=== PATIENT | male | born 1960 | race Caucasian/White ===

== ENCOUNTER 2023-09-28 13:41 | Outpatient (CLI) | payer MEDICARE, SELFPAY | END 2023-09-28 13:42 | disposition home or self-care (01) | PROVIDERS: PCP Family Medicine; Visit Provider Family Medicine | DX: Z13.220 Encounter for screening for lipoid disorders (principal); Z12.5 Encounter for screening for malignant neoplasm of prostate; R53.83 Other fatigue | CPT/HCPCS: 80048; 80061; 84443; G0103 ==

== ENCOUNTER 2024-10-03 10:03 | Outpatient (CLI) | payer MEDICARE, SELFPAY | END 2024-10-03 10:04 | disposition home or self-care (01) | PROVIDERS: PCP Family Medicine; Visit Provider Family Medicine | DX: E53.8 Deficiency of other specified B group vitamins (principal); G58.7 Mononeuritis multiplex | CPT/HCPCS: 80048; 82607; 85025 ==

== ENCOUNTER 2024-10-09 16:44 | Outpatient (CLI) | payer MEDICARE, SELFPAY | END 2024-10-09 16:45 | disposition home or self-care (01) | LOC: AMB 10-10 09:46 | PROVIDERS: PCP Family Medicine; Visit Provider Family Medicine | DX: R10.9 Unspecified abdominal pain (principal); R11.10 Vomiting, unspecified | CPT/HCPCS: A0425; A0427 ==

== ENCOUNTER 2024-10-09 17:33 | Inpatient (IN) | payer MEDICARE, SELFPAY ==
[2024-10-09] VITALS (32 sets, daily range): BP systolic 110–154; BP diastolic 65–112; PULSE 85–128; RESP 5–34; TEMP 36.8; O2SAT 93–98
[2024-10-09 18:10] LABS: Hematocrit 43.5 % (37.0-53.0); Hemoglobin* 15.5 gm/dL (13.5-17.5); Lymphocytes Percent Auto 5.5 % (20-44); Mean Corpuscular HGB Conc 36 gm/dL (32-36); Mean Corpuscular Hemoglobin 31 pg (26-34); Mean Corpuscular Volume 88 fL (80-100); Neutrophils Percent Auto 85.4 % (42.0-72.0); Platelet Count* 239 K/uL (140-440); RDW Coefficient of Variation % 12.7 % (11.5-15.5); Red Blood Count 4.95 m/uL (4.30-5.90); White Blood Count* 23.24 K/uL (4.50-11.00)
[2024-10-09 18:11] LABS: Eosinophils Percent Auto 0.1 % (0.0-7.0); Immature Granulocytes Pct Auto 0.6 %; Lactate* 2.2 mmol/L (0.5-1.9); Monocytes Percent Auto 8.4 % (0.0-11.0)
[2024-10-09 18:15] LABS: Slide Review Reflex No
[2024-10-09] MEDS: ONDANSETRON 2 MG/ML inj 4 MG IVP ×2 (18:24→22:45)
[2024-10-09] MEDS: 0.9 % SODIUM CHLORIDE 1000 ml 1,000 ML IV ×2 (18:24→21:24)
[2024-10-09] MEDS: TRANEXAMIC ACID 100 MG/ML INJ 1000 MG IV (18:24)
[2024-10-09 18:32] LABS: Albumin* 4.3 g/dL (3.3-5.0); Chloride* 97 mmol/L (96-114); Sodium* 135 mmol/L (135-149)
--- NOTE | 2024-10-09 18:34 | ED_ITS ---
HPI - Abdominal Pain General Date Seen: 10/09/24 Chief Complaint: Abdominal Pain Stated Complaint: Vomiting blood Time Seen by Provider: 10/09/24 17:48 Source: patient, family, EMS, RN notes reviewed and old records reviewed Mode of arrival: EMS Limitations: no limitations History of Present Illness HPI narrative: Patient is a very nice 64-year-old gentleman who presents here by EMS for ab dominal pain bloating and vomiting, he is vomiting up but dark coffee-grounds like, he is paraplegic and wheelchair bound, secondary to his mononeuritis. He is here with his caregiver, there is some swelling between the ovaries safe quit drinking or easy still drinking, she reports that there is some beer cans in his garbage, he reports that he has not drank anything in the last year. No history per patient of any varices, although I do see in his chart is a history of pancreatitis which thought to be secondary possibly to alcoholic reasons. He denies taking a blood thinner, or anticoagulants. No history of any fevers chills, he denies any diarrhea, and ex if anything his had no bowel movements. He says he has been sick now for approximately 6 days but worse in the last 24 hours. The amount of times he has vomited he thinks is greater than 10 times. No sumanth blood associated with anything that he is passing by his rectum, or he is vomiting. No previous history of GI bleeds. No history of any radiation of discomfort, no history of previous abdominal operations. Related Data Previous Rx's ?Medication ?Instructions ?Recorded gabapentin 800 mg tablet See Rx Instructions PO .COMP RUSSELL 10/03/24 #600 tabs omeprazole 20 mg capsule,delayed 20 mg PO QDAY #90 cap s 10/03/24 release Allergies Allergy/AdvReac Type Severity Reaction Status Date / Time No Known Allergies Allergy Unknown Unknown Verified 10/03/24 09:26 Review of Systems Status of ROS Reports: 10 or more systems reviewed and unremarkable except as noted in History and below [facility] Medical History Osteoarthritis of right hip ?M16.11 - Unilateral primary osteoarthritis, right hip (ICD-10) B12 deficiency ?E53.8 - Deficiency of other specified B group vitamins (ICD-10) Alcohol abuse ?F10.10 - Alcohol abuse, uncomplicated (ICD-10) Neuropathic pain ?M79.2 - Neuralgia and neuritis, unspecified (ICD-10) 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 - Mononeuritis multiplex (ICD-10) GERD (gastroesophageal reflux disease) ?K21.9 - Gastro-esophageal reflux disease without esophagitis (ICD-10) Surgical History S/P left inguinal hernia repair ?Z98.890 - Other specified postprocedural states (ICD-10) ?Z87.19 - Personal history of other diseases of the digestive system (ICD-10) Social History What is your current living situation?: I presently have a place to live Problems where you live: no known problems and declined to answer In the past 12 months, utilities in danger of being shut off: no In past 12 months, lack of transportation kept you from medical appts, meetings, work, or getting things needed for daily living: no In the past 12 mos, have been you worried that your food would run out before you had money to buy more?: never true In the past 12 mos, the food you bought just didn't last and you didn't have money to buy more?: never true Smoking Status: Never smoker How often does anyone, including family, friends and others, physically hurt you : never How often does anyone, including family, friends and others, insult or talk down to you: never How often does anyone, including family, friends and others, threaten you with harm: never How often does anyone, including family, friends and others, scream or curse at you: never Exam Narrative: Exam Narrative: On examination stable 2 he is in no apparent distress laying on his side, he has tenderness more in the middle part periumbilical his abdomen but he is not peritoneal, bowel sounds are quiet, there is no masses, he is obese, no hernias are noted, normal male genitalia. No darkening or suggestion of caput medusa. I do not detect any obvious ascites. Or shifting dullness. No CVA tenderness or bruising or mottling noted. Heart sounds are normal, chest is good air entry bilaterally mouth is otherwise normal there is no evidence of any change in hydration status his lower extremities appear normal, moved normally. Const: Vital Signs, click to edit/add: Vital Signs - 24 hr 10/09/24 17:48 10/09/24 18:00 10/09/24 18:15 Pulse Rate 123 H 107 H 121 H Respiratory Rate 18 16 16 Blood Pressure Pulse Oximetry 96 95 95 10/09/24 18:30 10/09/24 18:31 10/09/24 18:45 Pulse Rate 128 H 120 H Respiratory Rate 33 H 30 H 34 H Blood Pressure 130/103 H Pulse Oximetry 97 96 10/09/24 18:46 10/09/24 19:00 10/09/24 19:01 Pulse Rate 118 H 108 H 98 Respiratory Rate 20 18 22 Blood Pressure 147/112 H 154/107 H Pulse Oximetry 97 95 94 10/09/24 19:02 10/09/24 19:15 10/09/24 19:16 Pulse Rate 99 112 H 109 H Respiratory Rate 29 H 10 L 17 Blood Pressure 142/89 H Pulse Oximetry 96 95 94 10/09/24 19:30 10/09/24 19:32 10/09/24 20:03 Pulse Rate 109 H 113 H 95 Respiratory Rate 23 24 23 Blood Pressure 151/95 H Pulse Oximetry 95 95 95 10/09/24 20:05 Pulse Rate 103 H Respiratory Rate 20 Blood Pressure 119/69 Pulse Oximetry 97 Documenting provider has reviewed patient's vital signs: yes Course Reevaluation(s) Time of Reevaluation #1: 20:51 Reevaluation #1: Spoke to the patient again apprised him of the problem, he has acute cholecystitis, with an elevated white count. CT confirmatory on this. Likely has a bit of Lilian-Meyer with upper GI bleeds and retching secondary to this. No evidence of varices on CT. Spoke to Dr. Martino, she recommended admission IV antibiotics, pain medications NPO status she will see him in the morning, I then spoke to my hospitalist PA,Deena Michaels graciously accepted the patient, for above status Vital Signs Vital signs: Initial Vital Signs Pulse Rate 123 H 10/09/24 17:48 Respiratory Rate 18 10/09/24 17:48 Pulse Oximetry 96 10/09/24 17:48 Vital Signs Pulse Rate 123 H 10/09/24 17:48 Respiratory Rate 18 10/09/24 17:48 Pulse Oximetry 96 10/09/24 17:48 Pulse Rate 103 H 10/09/24 20:05 Respiratory Rate 20 10/09/24 20:05 Blood Pressure 119/69 10/09/24 20:05 Pulse Oximetry 97 10/09/24 20:05 Medications Administered Medications: Discontinued Medications Generic Name Dose Route Start Last Admin Trade Name Oscar PRN Reason Stop Dose Admin Sodium Chloride 1,000 mls @ 1,000 mls/hr 10/09/24 18:00 10/09/24 19:40 0.9 % Sodium Chloride 1000 Ml IV 10/09/24 18:59 Infused .Q1H BONITA Infusion Ondansetron HCl 4 mg 10/09/24 17:48 10/09/24 18:24 Ondansetron 2 Mg/Ml Inj IVP 10/09/24 17:49 4 mg ONCE ONE Administration Tranexamic Acid 1,000 mg 10/09/24 17:48 10/09/24 18:24 Tranexamic Acid 100 Mg/Ml Inj IV 10/09/24 17:49 1,000 mg ONCE ONE Administration MDM - Abdominal Pain MDM Narrative Medical decision making narrative: During this evaluation of this patient I considered multiple differential diagnosis is which included the life-threatening such as appendicitis, aortic aneurysm, mesenteric ischemia, bowel perforation, volvulus, and bowel obstruction. Other differential diagnosis is include but are not limited to cholecystitis, pancreatitis, hepatitis, gastritis, GERD, diverticulitis, peptic ulcer disease, pyelonephritis/UTI, renal colic/stone, testicular torsion as well as other acute scrotal processes, inflammatory bowel disease, as well as other etiologies I think we have to consider a possible upper GI bleed in this gentleman, given what I am seeing. We will go ahead and start 2 IVs, give him some TXA along with Protonix, IV fluids, and type and screen him. Until we get confirmation I did offer him some pain medications which she declined. Differential Diagnosis Differential diagnosis: Likely abdominal pain, acute appendicitis, calculus of kidney, constipation, diverticulitis, gastroenteritis, pancreatitis and small bowel obstruction Medical Records Attestation: I reviewed the patient's medical records. Lab Data Attestation: I reviewed the patient's lab results. Labs: Lab Results 10/09/24 10/09/24 10/09/24 Range/Units 17:50 18:04 18:30 WBC 23.24 H (4.50-11.00) K/uL RBC 4.95 (4.30-5.90) m/uL Hgb 15.5 (13.5-17.5) gm/dL Hct 43.5 (37.0-53.0) % MCV 88 (80-100) fL MCH 31 (26-34) pg MCHC 36 (32-36) gm/dL RDW Coeff of Sasha 12.7 (11.5-15.5) % Plt Count 239 (140-440) K/uL Neut % (Auto) 85.4 H (42.0-72.0) % Lymph % (Auto) 5.5 L (20-44) % Bell % (Auto) 8.4 (0.0-11.0) % Eos % (Auto) 0.1 (0.0-7.0) % Baso % (Auto) 0.0 (0.0-3.0) % Neut # (Auto) 19.80 H (1.7-7.0) K/uL Lymph # (Auto) 1.30 (0.90-2.90) K/uL Bell # (Auto) 2.00 H (0.00-0.90) K/UL Eos # (Auto) 0.00 (0.00-0.50) K/uL Baso # (Auto) 0.00 (0.00-0.30) K/uL Abs Immat Gran (auto) 0.10 (0.00-0.30) K/uL Imm/Tot Granulo (auto) 0.6 % INR 1.12 H (0.91-1.10) APTT 35 H (23-33) Seconds Sodium 135 (135-149) mmol/L Potassium 3.0 L (3.6-5.1) mmol/L Chloride 97 (96-114) mmol/L Carbon Dioxide 28 (20-32) mmol/L Anion Gap 10 (7-15) mEq/L BUN 29 (7-30) mg/dL Creatinine 1.1 (0.5-1.5) mg/dL Estimated GFR 76 ml/min Glucose 124 H (60-115) mg/dL Lactate 2.2 H (0.5-1.9) mmol/L Calcium 9.7 (8.4-10.6) mg/dL Total Bilirubin 2.2 H (0.1-1.5) mg/dL Direct Bilirubin 0.0 (0.0-0.5) mg/dL AST 33 (12-35) U/L ALT 21 (4-50) U/L Alkaline Phosphatase 83 (40-150) U/L Total Protein 8.0 (6.0-8.3) g/dL Albumin 4.3 (3.3-5.0) g/dL Amylase 47 (18-89) U/L Lipase 20 L (23-300) U/L Urine Color Dark yellow (Yellow) Urine Appearance Clear (Clear) Urine pH 6.0 (5.0-8.5) Ur Specific [place] 1.020 (1.000-1.030) Urine Protein 2+ A (Negative) Urine Glucose (UA) Negative (Negative) Urine Ketones Negative (Negative) Urine Blood Negative (Negative) Urine Nitrite Positive A (Negative) Urine Bilirubin 1+ A (Negative) Urine Urobilinogen 4.0 A (0.2-1.0) Ur Leukocyte Esterase Negative (Negative) Urine RBC 0-2 (0-2) Urine WBC 0-2 (0-5) Ur Squamous Epith Cells None (None-Few) Amorphous Sediment Few A (None) Urine Bacteria None (None) Gastric Occult Blood (Negative) Ethyl Alcohol < 0.01 (0.01-0.03) % POC Troponin I 0.00 L (0.01-0.04) ng/ml Blood Type O Positive Antibody Screen NEGATIVE 10/09/24 Range/Units 19:21 WBC (4.50-11.00) K/uL RBC (4.30-5.90) m/uL Hgb (13.5-17.5) gm/dL Hct (37.0-53.0) % MCV (80-100) fL MCH (26-34) pg MCHC (32-36) gm/dL RDW Coeff of Sasha (11.5-15.5) % Plt Count (140-440) K/uL Neut % (Auto) (42.0-72.0) % Lymph % (Auto) (20-44) % Bell % (Auto) (0.0-11.0) % Eos % (Auto) (0.0-7.0) % Baso % (Auto) (0.0-3.0) % Neut # (Auto) (1.7-7.0) K/uL Lymph # (Auto) (0.90-2.90) K/uL Bell # (Auto) (0.00-0.90) K/UL Eos # (Auto) (0.00-0.50) K/uL Baso # (Auto) (0.00-0.30) K/uL Abs Immat Gran (auto) (0.00-0.30) K/uL Imm/Tot Granulo (auto) % INR (0.91-1.10) APTT (23-33) Seconds Sodium (135-149) mmol/L Potassium (3.6-5.1) mmol/L Chloride (96-114) mmol/L Carbon Dioxide (20-32) mmol/L Anion Gap (7-15) mEq/L BUN (7-30) mg/dL Creatinine (0.5-1.5) mg/dL Estimated GFR ml/min Glucose (60-115) mg/dL Lactate (0.5-1.9) mmol/L Calcium (8.4-10.6) mg/dL Total Bilirubin (0.1-1.5) mg/dL Direct Bilirubin (0.0-0.5) mg/dL AST (12-35) U/L ALT (4-50) U/L Alkaline Phosphatase (40-150) U/L Total Protein (6.0-8.3) g/dL Albumin (3.3-5.0) g/dL Amylase (18-89) U/L Lipase (23-300) U/L Urine Color (Yellow) Urine Appearance (Clear) Urine pH (5.0-8.5) Ur Specific [place] (1.000-1.030) Urine Protein (Negative) Urine Glucose (UA) (Negative) Urine Ketones (Negative) Urine Blood (Negative) Urine Nitrite (Negative) Urine Bilirubin (Negative) Urine Urobilinogen (0.2-1.0) Ur Leukocyte Esterase (Negative) Urine RBC (0-2) Urine WBC (0-5) Ur Squamous Epith Cells (None-Few) Amorphous Sediment (None) Urine Bacteria (None) Gastric Occult Blood POSITIVE A (Negative) Ethyl Alcohol (0.01-0.03) % POC Troponin I (0.01-0.04) ng/ml Blood Type Antibody Screen Imaging Data CT scan - abdomen: Attestation: I have reviewed the pertinent imaging results. My impression: Acute cholecystitis Radiologist's impression: [address] [address] Diagnostic Imaging Report Patient: Steven Montoya MR#: [id number] : 1960 Acct:[id number] Loc: ED Service Date: 10/09/[address]: Ordering Physician: Pool Hubbard M.D. Date of Service: 10/09/24 Procedure(s): CT abdomen pelvis w con Accession Number(s): [id number] cc: Freddy Hightower M.D.; Pool Hubbard M.D.~ For Patients: As a result of the Cures Act, medical imaging exams and procedure reports are released immediately into your electronic medical record. You may view this report before your referring provider. If you have questions, please contact your health care provider. INDICATION: Abdominal pain, history of possible upper GI bleed. TECHNIQUE: CT abdomen and pelvis acquired with 100 cc Isovue 370 IV contrast. COMPARISON: None. FINDINGS: Lower chest: Coronary artery calcifications. Liver: Left hepatic lobe cyst. Unremarkable in size and attenuation. No suspicious masses. Gallbladder and bile ducts: Fluid dilation of the gallbladder with diffusely edematous appearance of the wall and pericholecystic inflammatory changes. No definite cholelithiasis. No biliary dilatation. Pancreas: Unremarkable. No mass or inflammation. Spleen: Splenule. Normal in size. No masses. Adrenal glands: Unremarkable. No nodules. Kidneys: Subcentimeter hypodense lesions too small to characterize, possibly cysts. No suspicious masses, stones, or hydronephrosis. GI tract: Moderate hiatal hernia. Normal in caliber. No sign of mass or inflammation. Normal appendix. Vasculature: Abdominal aorta is normal in caliber. Mesenteric arteries are patent. Lymph nodes: No lymphadenopathy. Peritoneum/Abdominal Wall: Unremarkable. No sign of mass or infiltration. No free air or significant free fluid. Pelvis: Bladder is unremarkable. Prostate is unremarkable. Bones: No acute findings. Severe bilateral hip osteoarthritis. Multilevel spinal degenerative changes. IMPRESSION: 1. Findings consistent with acute cholecystitis. 2. Moderate hiatal hernia. Please note that all CT scans at this facility use dose modulation, iterative reconstruction, and/or weight-based dosing when appropriate to reduce radiation dose to as low as reasonably achievable. Dictated by Freddy Shah MD @ 10/09/2024 8:28:20 PM (Electronically Signed) Discharge Plan Discharge Clinical Impression: Acute cholecystitis, Acute hypokalemia, Acute upper gastrointestinal bleeding, Vomiting, Mononeuritis multiplex Patient Disposition: Admitted As Observation Condition: Guarded Activity Level: Up with assist Discharge Diet: Other Diet Detail: NPO
[2024-10-09 18:35] LABS: Alanine Aminotransferase* 21 U/L (4-50); Alkaline Phosphatase* 83 U/L (40-150); Amylase* 47 U/L (18-89); Anion Gap 10 mEq/L (7-15); Aspartate Amino Transferase* 33 U/L (12-35); Bilirubin Total* 2.2 mg/dL (0.1-1.5); Blood Urea Nitrogen* 29 mg/dL (7-30); Calcium* 9.7 mg/dL (8.4-10.6); Carbon Dioxide* 28 mmol/L (20-32); Creatinine* 1.1 mg/dL (0.5-1.5); Estimated Glomerular Filt Rate 76 ml/min; Glucose* 124 mg/dL (60-115); Lipase* 20 U/L (23-300)
[2024-10-09 18:46] LABS: Appearance Urine Clear (Clear); Bilirubin Urine 1+ (Negative); Blood Urine Negative (Negative); Color Urine Dark yellow (Yellow); Glucose Urine Negative (Negative); Ketones Urine Negative (Negative); Leukocyte Esterase Urine Negative (Negative); Nitrite Urine Positive (Negative); Protein Urine 2+ (Negative)
[2024-10-09 18:47] LABS: Ethanol* < 0.01 % (0.01-0.03)
[2024-10-09 18:50] LABS: INR 1.12 (0.91-1.10); Prothrombin Time 15.3 Seconds
[2024-10-09 18:51] LABS: Partial Thromboplastin Time* 35 Seconds (23-33)
[2024-10-09 18:55] LABS: Amorphous Sediment Urine Few; RBC Urine 0-2 (0-2); WBC Urine 0-2 (0-5)
--- NOTE | 2024-10-09 19:17 | CRLHL7_ITS ---
For Patients: As a result of the Century Cures Act, medical imaging exams and procedure reports are released immediately into your electronic medical record. You may view this report before your referring provider. If you have questions, please contact your health care provider. INDICATION: Abdominal pain, history of possible upper GI bleed. TECHNIQUE: CT abdomen and pelvis acquired with 100 cc Isovue 370 IV contrast. COMPARISON: None. FINDINGS: Lower chest: Coronary artery calcifications. Liver: Left hepatic lobe cyst. Unremarkable in size and attenuation. No suspicious masses. Gallbladder and bile ducts: Fluid dilation of the gallbladder with diffusely edematous appearance of the wall and pericholecystic inflammatory changes. No definite cholelithiasis. No biliary dilatation. Pancreas: Unremarkable. No mass or inflammation. Spleen: Splenule. Normal in size. No masses. Adrenal glands: Unremarkable. No nodules. Kidneys: Subcentimeter hypodense lesions too small to characterize, possibly cysts. No suspicious masses, stones, or hydronephrosis. GI tract: Moderate hiatal hernia. Normal in caliber. No sign of mass or inflammation. Normal appendix. Vasculature: Abdominal aorta is normal in caliber. Mesenteric arteries are patent. Lymph nodes: No lymphadenopathy. Peritoneum/Abdominal Wall: Unremarkable. No sign of mass or infiltration. No free air or significant free fluid. Pelvis: Bladder is unremarkable. Prostate is unremarkable. Bones: No acute findings. Severe bilateral hip osteoarthritis. Multilevel spinal degenerative changes. IMPRESSION: 1. Findings consistent with acute cholecystitis. 2. Moderate hiatal hernia. Please note that all CT scans at this facility use dose modulation, iterative reconstruction, and/or weight-based dosing when appropriate to reduce radiation dose to as low as reasonably achievable. Dictated by Freddy Shah MD @ 10/09/2024 8:28:20 PM (Electronically Signed)
--- NOTE | 2024-10-09 20:58 | P.IMHP_ITS ---
Assessment and Plan Assessment and plan (1) Sepsis: Problem comment: Leukocytosis, WBC 23.24 with left shift 85%, tachycardic, EKG shows sinus tachycardia - repeat EKG in a.m., lactate 2.2 in ED - normalized, 0.9 on recheck Suspected source is acute cholecystitis HR improving following sepsis fluid resuscitation, afebrile, normotensive Continue Zosyn as initiated in ED Continue LR IVF to complete bolus 30 mL/kg followed by maintenance fluids alarm security or surveillance monitor, vitals per sepsis protocol- deescalating as appropriate BC x2 ordered, UC pending Status: Acute (2) Acute cholecystitis: Problem comment: CT shows Fluid dilation of the gallbladder with diffusely edematous appearance of the wall and pericholecystic inflammatory changes. No definite cholelithiasis. No biliary dilatation. C/w acute cholecystitis US ordered for a.m. Total bilirubin 2.2, AST 33, ALT 21, alk-phos 83, lipase 20 ED provider discussed with Dr. Martino, Gen Surg. Plan for consult in am, likely to OR to follow IV zosyn, NPO at midnight, IVF, pain/nausea management No enoxaparin pending surgical intervention, SCDs for VTE PPX (nonambulatory) Status: Acute (3) Acute upper gastrointestinal bleeding: Problem comment: Reports coffee ground emesis Gastric occult blood + Not on an anticoagulant/blood thinner H/o alcohol dependence - reports sober > 1 year. Concern would be for esophageal varicies Monitor, serial hemoglobin IV PPI bid No enoxaparin General Surgery consult. Would likely need to be transferred if persists or w orsens for appropriate intervention Status: Acute (4) Acute hypokalemia: Problem comment: K+ 3.0 Received 10 mEq IV in ED. Will give 3 more bumps Status: Acute (5) GERD (gastroesophageal reflux disease): Problem comment: Hold home omeprazole IV PPI Status: Acute (6) Mononeuritis multiplex: Problem comment: Dx 2012 Managed by PCP Status: Acute (7) Neuropathic pain: Problem comment: R/t mononeuritis Recent B12 285 Wheelchair bound Continue gabapentin 800mg q 6 hours (as reported in annual exam 10/03/24) Managed by PCP, no longer follows with Neurology Status: Chronic Plan General surgery consult in the morning. Ultrasound ordered for the morning. Plan for OR. NPO after midnight. Hold chemical prophylaxis. SCDs for VTE PPX. Lactate normalized, HR improving, patient actually looks quite well currently. Repeat EKG in the morning. Appropriate for planned surgical procedure unless decompensates overnight. Total Time Spent Total Time Spent: Today I spent 90 minutes seeing the patient, reviewing Expanse and EPIC notes/diagnostics, discussing the care plan with our care time that includes social work, PT/OT, pharmacy, RT, [facility]p and documenting my impressions and plan in the medical record. Hospitalist- H&P: HPI History of Present Illness Date Seen: 10/09/24 Chief complaint: Vomiting blood Narrative: Steven Montoya is a 64 year old male past medical history significant for mononeuritis multiplex with neuropathic pain, B12 deficiency, GERD, osteoarthritis, history of alcohol dependence sober > 1 year is admitted to the medical floor from the ED for further management of sepsis in setting of acute cholecystitis. Patient is able to provide history but somewhat vague and not consistent with dates/timing. He reports abdominal pain and bloating for the past 5 days, worsening over the last 24 hours. Describes pain as crampy. Reports dark coffee-ground vomitus the past few days. History of alcohol dependence but denies alcohol use in the last year. No known history of varices. Does have a history of pancreatitis. Does not take any blood thinners/anticoagulant. Denies fevers or chills. Denies headache or dizziness. Denies chest pain or shortness of breath. Last normal bowel movement was maybe 4-5 days ago. Small stools have otherwise been without blood. No change in urination. Adamant that he has not drank any alcohol in the past year. ED report states caregiver has seen beer cans in his trash. He tells me this is because he has visitors who throw their cans in there. Lives alone. Has a caregiver every other week. Independent with ADLs. Nonambulatory. Wheelchair-bound secondary to his mononeuritis. Is able to stand and pivot. Denies history of anesthesia complications, personal/family bleeding disorders. Nonsmoker. History of alcohol dependence. PCP is Dr. Hightower. Review of Systems Narrative: REVIEW OF SYSTEMS: Complete review of systems performed and negative unless otherwise stated in HPI or below. Medical Decision Making Medical Decision Making Has patient completed a Health Care Directive: No PFSH PFSH Medical History (Updated 10/09/24 @ 22:46 by Deena Espinal PA-C) Osteoarthritis of right hip ?M16.11 - Unilateral primary osteoarthritis, right hip (ICD-10) B12 deficiency ?E53.8 - Deficiency of other specified B group vitamins (ICD-10) Alcohol abuse ?F10.10 - Alcohol abuse, uncomplicated (ICD-10) Neuropathic pain ?M79.2 - Neuralgia and neuritis, unspecified (ICD-10) 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 - Mononeuritis multiplex (ICD-10) GERD (gastroesophageal reflux disease) ?K21.9 - Gastro-esophageal reflux disease without esophagitis (ICD-10) Surgical History S/P left inguinal hernia repair ?Z98.890 - Other specified postprocedural states (ICD-10) ?Z87.19 - Personal history of other diseases of the digestive system (ICD-10) Social History What is your current living situation?: I presently have a place to live Problems where you live: no known problems and declined to answer In the past 12 months, utilities in danger of being shut off: no In past 12 months, lack of transportation kept you from medical appts, meetings, work, or getting things needed for daily living: no In the past 12 mos, have been you worried that your food would run out before you had money to buy more?: never true In the past 12 mos, the food you bought just didn't last and you didn't have money to buy more?: never true Smoking Status: Never smoker How often does anyone, including family, friends and others, physically hurt you : never How often does anyone, including family, friends and others, insult or talk down to you: never How often does anyone, including family, friends and others, threaten you with harm: never How often does anyone, including family, friends and others, scream or curse at you: never Meds Home Medications and Allergies Home Medications ?Medication ?Instructions ?Recorded ?Confirmed ?Type gabapentin 800 mg tablet See Rx Instructions PO .COMP RUSSELL 10/03/24 10/03/24 Rx #600 tabs omeprazole 20 mg capsule,delayed 20 mg PO QDAY #90 cap s 10/03/24 10/03/24 Rx release Allergies Allergy/AdvReac Type Severity Reaction Status Date / Time No Known Allergies Allergy Unknown Unknown Verified 10/03/24 09:26 Exam Narrative: Exam Narrative: PHYSICAL EXAM General: Pleasant, very conversant, NAD HEENT: Normocephalic, atraumatic, sclera white, EOMI, oral mucosa moist Cardiovascular: RRR, S1S2. No pitting edema Pulmonary: CTA bilaterally without rhonchi, rales, expiratory wheezes. No dyspnea on room air Abdominal: Soft, no palpable tenderness currently, no guarding Neurological: Alert, answering questions appropriately, cranial nerves intact, no focal findings Extremities: No gross joint deformity or swelling. AROMI. Neurovascularly intact Skin: Warm, dry. Const: Vital Signs, click to edit/add: Vital Signs - 24 hr 10/09/24 17:48 10/09/24 18:00 10/09/24 18:15 Pulse Rate 123 H 107 H 121 H Respiratory Rate 18 16 16 Blood Pressure Pulse Oximetry 96 95 95 10/09/24 18:30 10/09/24 18:31 10/09/24 18:45 Pulse Rate 128 H 120 H Respiratory Rate 33 H 30 H 34 H Blood Pressure 130/103 H Pulse Oximetry 97 96 10/09/24 18:46 10/09/24 19:00 10/09/24 19:01 Pulse Rate 118 H 108 H 98 Respiratory Rate 20 18 22 Blood Pressure 147/112 H 154/107 H Pulse Oximetry 97 95 94 10/09/24 19:02 10/09/24 19:15 10/09/24 19:16 Pulse Rate 99 112 H 109 H Respiratory Rate 29 H 10 L 17 Blood Pressure 142/89 H Pulse Oximetry 96 95 94 10/09/24 19:30 10/09/24 19:32 10/09/24 20:03 Pulse Rate 109 H 113 H 95 Respiratory Rate 23 24 23 Blood Pressure 151/95 H Pulse Oximetry 95 95 95 10/09/24 20:05 Pulse Rate 103 H Respiratory Rate 20 Blood Pressure 119/69 Pulse Oximetry 97 Hospitalist - H&P: Result Labs Labs: Short CBC 10/09/24 Range/Units 18:04 WBC 23.24 H (4.50-11.00) K/uL Hgb 15.5 (13.5-17.5) gm/dL Hct 43.5 (37.0-53.0) % Plt Count 239 (140-440) K/uL BMP 10/09/24 18:04 Sodium 135 Potassium 3.0 L Chloride 97 Carbon Dioxide 28 BUN 29 Creatinine 1.1 Glucose 124 H Calcium 9.7 Liver Function 10/09/24 Range/Units 18:04 Total Bilirubin 2.2 H (0.1-1.5) mg/dL Direct Bilirubin 0.0 (0.0-0.5) mg/dL AST 33 (12-35) U/L ALT 21 (4-50) U/L Alkaline Phosphatase 83 (40-150) U/L Albumin 4.3 (3.3-5.0) g/dL Urine 10/09/24 Range/Units 18:30 Urine Color Dark yellow (Yellow) Urine Appearance Clear (Clear) Urine pH 6.0 (5.0-8.5) Ur Specific [place] 1.020 (1.000-1.030) Urine Protein 2+ A (Negative) Urine Glucose (UA) Negative (Negative) Imaging CT abdomen pelvis: Attestation: I have reviewed the pertinent imaging results. Radiologist's impression: Lower chest: Coronary artery calcifications. Liver: Left hepatic lobe cyst. Unremarkable in size and attenuation. No suspicious masses. Gallbladder and bile ducts: Fluid dilation of the gallbladder with diffusely edematous appearance of the wall and pericholecystic inflammatory changes. No definite cholelithiasis. No biliary dilatation. Pancreas: Unremarkable. No mass or inflammation. Spleen: Splenule. Normal in size. No masses. Adrenal glands: Unremarkable. No nodules. Kidneys: Subcentimeter hypodense lesions too small to characterize, possibly cysts. No suspicious masses, stones, or hydronephrosis. GI tract: Moderate hiatal hernia. Normal in caliber. No sign of mass or inflammation. Normal appendix. Vasculature: Abdominal aorta is normal in caliber. Mesenteric arteries are patent. Lymph nodes: No lymphadenopathy. Peritoneum/Abdominal Wall: Unremarkable. No sign of mass or infiltration. No free air or significant free fluid. Pelvis: Bladder is unremarkable. Prostate is unremarkable. Bones: No acute findings. Severe bilateral hip osteoarthritis. Multilevel spinal degenerative changes. IMPRESSION: 1. Findings consistent with acute cholecystitis. 2. Moderate hiatal hernia.
[2024-10-09] MEDS: PIPERACILLIN/TAZOBACTAM 4.5 GM in 0.9 % SODIUM CHLORIDE Mini-bag 100 ML IVPB (21:22)
[2024-10-09] MEDS: POTASSIUM CHLORIDE 10 MEQ/100 ML PIGGYBACK 100 MEQ IVPB ×2 (21:25→23:52)
[2024-10-09] MEDS: HYDROmorphone 0.5 mg/0.5 ml inj IVP (21:28)
[2024-10-09 22:18] LABS: Lactate* 0.9 mmol/L (0.5-1.9)
[2024-10-09] MEDS: SODIUM CHLORIDE 0.9 % (FLUSH) 10 ML SYRINGE 5 ML IVF (22:45)
[2024-10-09] MEDS: LACTATED RINGERS 1000 ML 1,000 ML IV (23:45)
[2024-10-09] MEDS: GABAPENTIN 300 MG CAPSULE 600 MG PO (23:50)
[2024-10-09] MEDS: GABAPENTIN 100 MG CAPSULE 200 MG PO (23:50)
[2024-10-10] VITALS (13 sets, daily range): BP systolic 98–139; BP diastolic 63–89; PULSE 88–112; RESP 16–20; TEMP 37.1–37.9; O2SAT 93–98
[2024-10-10 00:15] LABS: Hemoglobin* 13.3 gm/dL (13.5-17.5)
[2024-10-10] MEDS: LACTATED RINGERS 1000 ML 1,000 ML 125 ML IV ×3 (00:26→16:56)
[2024-10-10] MEDS: POTASSIUM CHLORIDE 10 MEQ/100 ML PIGGYBACK 100 MEQ IVPB ×2 (01:09→02:25)
[2024-10-10] MEDS: PROCHLORPERAZINE 5 MG/ML VIAL IV (01:25)
[2024-10-10] MEDS: PIPERACILLIN/TAZOBACTAM 3.375 GM in 0.9 % SODIUM CHLORIDE Mini-bag 100 ML IVPB ×4 (03:26→20:46)
[2024-10-10 06:49] LABS: Albumin* 3.1 g/dL (3.3-5.0); Chloride* 104 mmol/L (96-114); Potassium* 3.4 mmol/L (3.6-5.1); Sodium* 135 mmol/L (135-149)
[2024-10-10 06:51] LABS: Blood Urea Nitrogen* 21 mg/dL (7-30); Est. Creatinine Clearance* 89.05; Estimated Glomerular Filt Rate 85 ml/min
[2024-10-10 06:52] LABS: Alanine Aminotransferase* 14 U/L (4-50); Alkaline Phosphatase* 67 U/L (40-150); Anion Gap 5 mEq/L (7-15); Aspartate Amino Transferase* 25 U/L (12-35); Bilirubin Direct* 0.3 mg/dL (0.0-0.5); Bilirubin Total* 2.2 mg/dL (0.1-1.5); Calcium* 8.2 mg/dL (8.4-10.6); Carbon Dioxide* 26 mmol/L (20-32); Glucose* 110 mg/dL (60-115); Lipase* 19 U/L (23-300)
[2024-10-10 06:54] LABS: Hematocrit 33.6 % (37.0-53.0); Hemoglobin* 11.8 gm/dL (13.5-17.5); Mean Corpuscular HGB Conc 35 gm/dL (32-36); Mean Corpuscular Hemoglobin 32 pg (26-34); Mean Corpuscular Volume 90 fL (80-100); Platelet Count* 183 K/uL (140-440); Red Blood Count 3.72 m/uL (4.30-5.90); White Blood Count* 16.82 K/uL (4.50-11.00)
[2024-10-10 07:02] LABS: Slide Review Reflex No
--- NOTE | 2024-10-10 07:41 | PC.NURSE ---
Shift note ([id number]): Patient admitted from ED at 2152. Pleasant and alert. Stands at side of bed to use urinal with walker, gait belt and assist of two. Given PRN Zofran and Compazine for nausea/vomiting. Emesis reddish-brown tinged. Scheduled gabapentin given for neuropathy pain in hip rated 6/10.?
--- NOTE | 2024-10-10 08:00 | CRLHL7_ITS ---
For Patients: As a result of the Century Cures Act, medical imaging exams and procedure reports are released immediately into your electronic medical record. You may view this report before your referring provider. If you have questions, please contact your health care provider. INDICATION: Cholecystitis. TECHNIQUE: Ultrasound abdomen limited. Sonographic images of the right upper quadrant were obtained using rizvi-scale and color Doppler images. COMPARISON: CT abdomen and pelvis 10/09/2024 FINDINGS: Liver: Stable left hepatic lobe cyst. Normal directional flow in the main portal vein. Gallbladder: Mild diffuse wall thickening. Layering sludge and/or nonshadowing stones. No pericholecystic fluid evident. Common bile duct: Not well visualized. No convincing biliary ductal dilatation. Common bile duct was nondilated on recent CT. Pancreas: Obscured by bowel gas. Right kidney: 10.6 cm in pole to pole length. No evidence of hydronephrosis, stone or solid mass. Vasculature: Visualized aorta is normal. No free fluid evident. IMPRESSION: 1. Sludge and/or nonshadowing stones in the gallbladder with diffuse gallbladder wall thickening, worrisome for cholecystitis. 2. Suboptimal visualization of the common bile duct. No convincing biliary ductal dilatation. Dictated by Guanako Barber MD @ 10/11/2024 11:41:32 AM Dictated by: Guanako Barber MD @ 10/11/2024 11:41:52 (Electronically Signed)
[2024-10-10] MEDS: PANTOPRAZOLE SODIUM 40 MG INJ IVP ×2 (08:43→20:46)
[2024-10-10] MEDS: GABAPENTIN 300 MG CAPSULE 900 MG PO ×4 (08:44→20:45)
[2024-10-10] MEDS: SODIUM CHLORIDE 0.9 % (FLUSH) 10 ML SYRINGE 5 ML IVF ×2 (08:45→20:46)
--- NOTE | 2024-10-10 11:58 | P.GSCN_ITS ---
History of Present Illness Consult details Date Seen: 10/10/24 Consult date: 10/10/24 Narrative: The patient is a 64-year-old male with a history of mononeuritis multiplex who presented to the hospital with 4 days of abdominal pain. His history is somewhat difficult to obtain though he states that he thinks approximately 5 days ago he had sudden onset of diffuse abdominal pain. He states his abdomen has been distended , making him feel as if she were . He has induced vomiting to see if that helps, however it has not. He did have a small amount of blood-tinged emesis, however he states that it was minimal. He has not had a bowel movement during that time. States that he has bowel movements normally every 4 days but denies being constipated. He has not had any fevers. He states that he has not tried eating to see if this will aggravate his symptoms. He has noted his urine has been dark and he feels that he is dehydrated as his mouth is dry. He has had similar symptoms in the past he thinks approximately once month. He does not note the pain after eating but he states that sometimes when he is laying down he will feel pain. 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 He is unable to completely extend his legs. [facility] Medical History (Updated 10/10/24 @ 12:06 by Heaven Martino MD) Osteoarthritis of right hip ?M16.11 - Unilateral primary osteoarthritis, right hip (ICD-10) B12 deficiency ?E53.8 - Deficiency of other specified B group vitamins (ICD-10) Alcohol abuse ?F10.10 - Alcohol abuse, uncomplicated (ICD-10) Neuropathic pain ?M79.2 - Neuralgia and neuritis, unspecified (ICD-10) 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 - Mononeuritis multiplex (ICD-10) GERD (gastroesophageal reflux disease) ?K21.9 - Gastro-esophageal reflux disease without esophagitis (ICD-10) Surgical History S/P left inguinal hernia repair ?Z98.890 - Other specified postprocedural states (ICD-10) ?Z87.19 - Personal history of other diseases of the digestive system (ICD-10) Social History What is your current living situation?: I presently have a place to live Problems where you live: no known problems Problems where you live details: n/a In the past 12 months, utilities in danger of being shut off: no In past 12 months, lack of transportation kept you from medical appts, meetings, work, or getting things needed for daily living: no In the past 12 mos, have been you worried that your food would run out before you had money to buy more?: never true In the past 12 mos, the food you bought just didn't last and you didn't have money to buy more?: never true Smoking Status: Never smoker How often do you have a drink containing alcohol: never AUDIT-C Alcohol total score: 0 Non-prescribed substance use: denies use Caffeine: Yes How often does anyone, including family, friends and others, physically hurt you : never How often does anyone, including family, friends and others, insult or talk down to you: never How often does anyone, including family, friends and others, threaten you with harm: never How often does anyone, including family, friends and others, scream or curse at you: never Meds Home Medications and Allergies Home Medications ?Medication ?Instructions ?Recorded ?Confirmed ?Type gabapentin 800 mg tablet See Rx Instructions PO .COMP RUSSELL 10/03/24 10/03/24 Rx #600 tabs omeprazole 20 mg capsule,delayed 20 mg PO QDAY #90 cap s 10/03/24 10/03/24 Rx release Allergies Allergy/AdvReac Type Severity Reaction Status Date / Time No Known Allergies Allergy Unknown Unknown Verified 10/03/24 09:26 Exam Narrative: Exam Narrative: General appearance: Alert, cooperative, and in no distress Eyes: PERRLA, eye lids clear, and sclera white HENT Head: Normocephalic Ears: External ears normal Pulmonary: Breathing nonlabored on room air Cardiovascular Heart: Regular rate Extremities: warm and well perfused Gastrointestinal Abdominal: Mildly distended but soft. He is mildly tender in the right upper quadrant with Amanda sign. Minimal epigastric tenderness. Nontender in other areas of the abdomen. Musculoskeletal: Extremities: Lower extremities are contracted at the hip in knee. Patient does not permit extension of his legs. He states that they do not extend any further. He is however able to extend his knees though he continues to be contracted at the hip at approximately 90?. Skin: Normal skin color, texture, and turgor. Neurologic: No focal deficits Psychiatric: Alert, oriented, cooperative, normal affect. Const: Vital Signs, click to edit/add: Vital Signs - 24 hr 10/09/24 17:48 10/09/24 18:00 10/09/24 18:15 Temperature Pulse Rate 123 H 107 H 121 H Pulse Rate [Pulse Oximeter] Respiratory Rate 18 16 16 Blood Pressure Blood Pressure [Ri ght Arm] Pulse Oximetry 96 95 95 Oxygen Delivery Me thod 10/09/24 18:30 10/09/24 18:31 10/09/24 18:45 Temperature Pulse Rate 128 H 120 H Pulse Rate [Pulse Oximeter] Respiratory Rate 33 H 30 H 34 H Blood Pressure 130/103 H Blood Pressure [Ri ght Arm] Pulse Oximetry 97 96 Oxygen Delivery Me thod 10/09/24 18:46 10/09/24 19:00 10/09/24 19:01 Temperature Pulse Rate 118 H 108 H 98 Pulse Rate [Pulse Oximeter] Respiratory Rate 20 18 22 Blood Pressure 147/112 H 154/107 H Blood Pressure [Ri ght Arm] Pulse Oximetry 97 95 94 Oxygen Delivery Me thod 10/09/24 19:02 10/09/24 19:15 10/09/24 19:16 Temperature Pulse Rate 99 112 H 109 H Pulse Rate [Pulse Oximeter] Respiratory Rate 29 H 10 L 17 Blood Pressure 142/89 H Blood Pressure [Ri ght Arm] Pulse Oximetry 96 95 94 Oxygen Delivery Me thod 10/09/24 19:30 10/09/24 19:32 10/09/24 20:03 Temperature Pulse Rate 109 H 113 H 95 Pulse Rate [Pulse Oximeter] Respiratory Rate 23 24 23 Blood Pressure 151/95 H Blood Pressure [Ri ght Arm] Pulse Oximetry 95 95 95 Oxygen Delivery Me thod 10/09/24 20:05 10/09/24 20:06 10/09/24 20:15 Temperature Pulse Rate 103 H 105 H 108 H Pulse Rate [Pulse Oximeter] Respiratory Rate 20 16 19 Blood Pressure 119/69 Blood Pressure [Ri ght Arm] Pulse Oximetry 97 97 94 Oxygen Delivery Me thod 10/09/24 20:16 10/09/24 20:30 10/09/24 20:31 Temperature Pulse Rate 106 H 112 H Pulse Rate [Pulse Oximeter] Respiratory Rate 18 13 15 Blood Pressure 130/81 112/70 Blood Pressure [Ri ght Arm] Pulse Oximetry 94 97 98 Oxygen Delivery Me thod 10/09/24 20:45 10/09/24 20:47 10/09/24 21:00 Temperature Pulse Rate 107 H 123 H 118 H Pulse Rate [Pulse Oximeter] Respiratory Rate 15 16 19 Blood Pressure 110/72 Blood Pressure [Ri ght Arm] Pulse Oximetry 95 97 96 Oxygen Delivery Me thod 10/09/24 21:01 10/09/24 21:15 10/09/24 21:19 Temperature Pulse Rate 122 H Pulse Rate [Pulse Oximeter] Respiratory Rate 21 5 L 9 L Blood Pressure 127/78 Blood Pressure [Ri ght Arm] Pulse Oximetry 94 Oxygen Delivery Me thod 10/09/24 21:30 10/09/24 21:45 10/09/24 22:10 Temperature Pulse Rate 118 H 113 H 107 H Pulse Rate [Pulse Oximeter] Respiratory Rate 17 22 Blood Pressure Blood Pressure [Ri ght Arm] Pulse Oximetry 95 93 Oxygen Delivery Me thod 10/09/24 22:42 10/09/24 23:54 10/10/24 02:28 Temperature 98.3 F 98.3 F Pulse Rate 95 Pulse Rate [Pulse Oximeter] 100 85 Respiratory Rate 18 19 Blood Pressure Blood Pressure [Ri ght Arm] 112/65 131/81 Pulse Oximetry 94 94 Oxygen Delivery Me thod Room Air Room Air 10/10/24 03:27 10/10/24 07:00 10/10/24 08:00 Temperature 98.9 F 98.7 F Pulse Rate 88 Pulse Rate [Pulse Oximeter] 94 Respiratory Rate 20 16 Blood Pressure Blood Pressure [Ri ght Arm] 118/80 119/89 Pulse Oximetry 98 97 Oxygen Delivery Me thod Room Air Room Air 10/10/24 11:30 Temperature 98.8 F Pulse Rate Pulse Rate [Pulse Oximeter] 100 Respiratory Rate 16 Blood Pressure Blood Pressure [Ri ght Arm] 139/74 Pulse Oximetry 95 Oxygen Delivery Me thod Room Air Results Labs Labs: On presentation, labs were as follows: White blood cell count 23.2 with left shift of 85 Potassium 3.0 Lactate 2.2 Total bilirubin 2.2 Direct bilirubin 0 AST, ALT and alkaline phosphatase within normal limits Amylase and lipase normal Repeat labs this morning: Potassium 3.4, total bilirubin 2.2, remainder of LFTs normal including direct bilirubin. Lipase remains normal White blood cell count 16.8 Repeat lactate last night was normal. Gastric occult blood was positive UA was positive for protein, nitrates and bilirubin. Imaging Abdomen CT scan report/results: report reviewed and image reviewed Abdominal ultrasound report/results: image reviewed Additional studies: CT abdomen and pelvis acquired with 100 cc Isovue 370 IV contrast. COMPARISON: None. FINDINGS: Lower chest: Coronary artery calcifications. Liver: Left hepatic lobe cyst. Unremarkable in size and attenuation. No suspicious masses. Gallbladder and bile ducts: Fluid dilation of the gallbladder with diffusely edematous appearance of the wall and pericholecystic inflammatory changes. No definite cholelithiasis. No biliary dilatation. Pancreas: Unremarkable. No mass or inflammation. Spleen: Splenule. Normal in size. No masses. Adrenal glands: Unremarkable. No nodules. Kidneys: Subcentimeter hypodense lesions too small to characterize, possibly cysts. No suspicious masses, stones, or hydronephrosis. GI tract: Moderate hiatal hernia. Normal in caliber. No sign of mass or inflammation. Normal appendix. Vasculature: Abdominal aorta is normal in caliber. Mesenteric arteries are patent. Lymph nodes: No lymphadenopathy. Peritoneum/Abdominal Wall: Unremarkable. No sign of mass or infiltration. No free air or significant free fluid. Pelvis: Bladder is unremarkable. Prostate is unremarkable. Bones: No acute findings. Severe bilateral hip osteoarthritis. Multilevel spinal degenerative changes. IMPRESSION: 1. Findings consistent with acute cholecystitis. 2. Moderate hiatal hernia. Please note that all CT scans at this facility use dose modulation, iterative reconstruction, and/or weight-based dosing when appropriate to reduce radiation dose to as low as reasonably achievable. Dictated by Freddy Shah MD @ 10/09/2024 8:28:20 PM ----- ADDENDUM ----- Findings communicated to MD Haydee (ordering provider) by MD Pablo (radiology) at 8:10p by phone. Dictated by Freddy Shah MD @ Oct 09 2024 8:52PM (Electronically Signed) For Patients: As a result of the Century Cures Act, medical imaging exams and procedure reports are released immediately into your electronic medical record. You may view this report before your referring provider. If you have questions, please contact your health care provider. INDICATION: Abdominal pain, history of possible upper GI bleed. TECHNIQUE: CT abdomen and pelvis acquired with 100 cc Isovue 370 IV contrast. COMPARISON: None. FINDINGS: Lower chest: Coronary artery calcifications. Liver: Left hepatic lobe cyst. Unremarkable in size and attenuation. No suspicious masses. Gallbladder and bile ducts: Fluid dilation of the gallbladder with diffusely edematous appearance of the wall and pericholecystic inflammatory changes. No definite cholelithiasis. No biliary dilatation. Pancreas: Unremarkable. No mass or inflammation. Spleen: Splenule. Normal in size. No masses. Adrenal glands: Unremarkable. No nodules. Kidneys: Subcentimeter hypodense lesions too small to characterize, possibly cysts. No suspicious masses, stones, or hydronephrosis. GI tract: Moderate hiatal hernia. Normal in caliber. No sign of mass or inflammation. Normal appendix. Vasculature: Abdominal aorta is normal in caliber. Mesenteric arteries are patent. Lymph nodes: No lymphadenopathy. Peritoneum/Abdominal Wall: Unremarkable. No sign of mass or infiltration. No free air or significant free fluid. Pelvis: Bladder is unremarkable. Prostate is unremarkable. Bones: No acute findings. Severe bilateral hip osteoarthritis. Multilevel spinal degenerative changes. IMPRESSION: 1. Findings consistent with acute cholecystitis. 2. Moderate hiatal hernia. Please note that all CT scans at this facility use dose modulation, iterative reconstruction, and/or weight-based dosing when appropriate to reduce radiation dose to as low as reasonably achievable. Dictated by Freddy Shah MD @ 10/09/2024 8:28:20 PM Progress Note:A&P Assessment and plan (1) Hiatal hernia: Status: Acute (2) Vomiting: Status: Acute (3) Acute hypokalemia: Status: Acute (4) Acute upper gastrointestinal bleeding: Status: Acute (5) Acute cholecystitis: Status: Acute (6) Sepsis: Status: Acute (7) Contracture, hip: Status: Acute Plan The patient is a 64-year-old male with neuropathy and severe contracture of his hips with likely cholecystitis, possibly acalculous. Ultrasound read is pending though it appears to show gallbladder wall thickening and possibly sludge without obvious gallstones. -elevated bilirubin is indirect and not in an obstructive pattern. -I discussed with the patient that treatment is generally cholecystectomy, however the gallbladder is significantly distended on imaging and markedly inflamed, therefore cholecystectomy will likely be difficult. Compounding this however is that the patient has contracture of his hips. He is unable to extend them at all. This will also make cholecystectomy difficult and he would likely need an open cholecystectomy in this current setting. I think therefore the best course of action would be cholecystostomy tube given the marked distension of his gallbladder and his illness on presentation. Laparoscopic cholecystectomy could be attempted at a later date, however he is still at risk for needing open cholecystectomy given the position of his legs. If her to a tertiary hospital is not possible, I would recommend NPO and antibiotics to see if the gallbladder can be cooled off. The patient has requested water which I think is reasonable. -discussed with hospitalist and patient
--- NOTE | 2024-10-10 15:12 | PM.IMPN1 ---
Assessment and Plan Assessment and plan (1) Acute cholecystitis: Problem comment: CT shows Fluid dilation of the gallbladder with diffusely edematous appearance of the wall and pericholecystic inflammatory changes. No definite cholelithiasis. No biliary dilatation. C/w acute cholecystitis General surgery consult raises concern about difficulty of laparoscopic cholecystectomy given chronic he hip contractures. Medically managed for now. Possible cholecystostomy tube depending on clinical course. Total bilirubin 2.2, AST 33, ALT 21, alk-phos 83, lipase 20 Clinically improved with IV fluids and Zosyn Status: Acute (2) Sepsis: Problem comment: Leukocytosis, WBC 23.24 with left shift 85%, tachycardic, EKG shows sinus tachycardia - repeat EKG in a.m., lactate 2.2 in ED - normalized, 0.9 on recheck Suspected source is acute cholecystitis HR improving following sepsis fluid resuscitation, afebrile, normotensive Continue Zosyn as initiated in ED Continue LR IVF to complete bolus 30 mL/kg followed by maintenance fluids vehicle monitor technician, vitals per sepsis protocol- deescalating as appropriate BC x2 ordered, UC pending Status: Acute (3) Contracture, hip: Problem comment: Chronic bilateral hip contractures limiting abdominal exposure and positioning for surgery. 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 On gabapentin 800 mg 6 or 7 times a day. I recommend this be reduced to 3600 mg daily total, 1200 t.i.d. or 900 q.i.d. consider Neurology consult for ongoing management of neuropathic pain and mononeuritis multiplex. Status: Chronic Plan 64-year-old male with acute cholecystitis. Was septic on admission but clinically improved today. Continue medical management. Coordinate with General surgery. Transfer for cholecystostomy tube if necessary. Continue to manage other chronic medical problems as well. Plan of care is discussed with the patient and other providers. Total Time Spent Total Time Spent: Total time spent today is 60 minutes in reviewing outside records, coordination of care, discussing with patient and other providers management of cholecystitis in the presence of above medical problems. Subjective Date Seen: 10/10/24 Interval history: Steevn Montoya is a 64 year old male past medical history significant for mononeuritis multiplex with neuropathic pain, B12 deficiency, GERD, osteoarthritis, history of alcohol dependence sober > 1 year is admitted to the medical floor from the ED for further management of sepsis in setting of acute cholecystitis. Patient is able to provide history but somewhat vague and not consistent with dates/timing. He reports abdominal pain and bloating for the past 5 days, worsening over the last 24 hours. Describes pain as crampy. Reports dark coffee-ground vomitus the past few days. History of alcohol dependence but denies alcohol use in the last year. No known history of varices. Does have a history of pancreatitis. Does not take any blood thinners/anticoagulant. Denies fevers or chills. Denies headache or dizziness. Denies chest pain or shortness of breath. Last normal bowel movement was maybe 4-5 days ago. Small stools have otherwise been without blood. No change in urination. He reports that he has not drank any alcohol in the past year. ED report states caregiver has seen beer cans in his trash. He tells me this is because he has visitors who throw their cans in there. Lives alone. Has a caregiver every other week. Independent with ADLs. Nonambulatory. Wheelchair-bound secondary to his mononeuritis. Is able to stand and pivot. Denies history of anesthesia complications, personal/family bleeding disorders. Nonsmoker. PCP is Dr. Hightower. Patient is on gabapentin 800 mg 6 or 7 times a day. I explained that this was above the recommended maximum dose of gabapentin. He is using this for pain associated with his neuropathy/vasculitis with mononeuritis multiplex. At the time of admission CT scan showed findings consistent with acute cholecystitis. Patient has received fluid resuscitation and Zosyn. Notably the patient is unable to extend at the hips. Both hips have contracture at about 90? of flexion. 10/10/2024: Patient reports feeling much better today. In consultation with surgery there is concerned that laparoscopic cholecystectomy would be very difficult with his hip contractures. Exam Narrative: Exam Narrative: He is alert, pleasant and in no distress. He is oriented to his circumstances. Eyes normal. Oropharynx normal. Respirations are clear to auscultation. Cardiovascular: S1, S2, regular rate and rhythm. Abdomen: Bowel sounds active. Abdomen is soft without tenderness or mass. Bilaterally hips are flexed at 90? and he is unable to extend them. Distally has intact pulses and sensation. No edema. Const: Vital Signs, click to edit/add: Vital Signs - 24 hr 10/09/24 17:48 10/09/24 18:00 10/09/24 18:15 Temperature Pulse Rate 123 H 107 H 121 H Pulse Rate [Pulse Oximeter] Respiratory Rate 18 16 16 Blood Pressure Blood Pressure [Ri ght Arm] Pulse Oximetry 96 95 95 Oxygen Delivery Me thod 10/09/24 18:30 10/09/24 18:31 10/09/24 18:45 Temperature Pulse Rate 128 H 120 H Pulse Rate [Pulse Oximeter] Respiratory Rate 33 H 30 H 34 H Blood Pressure 130/103 H Blood Pressure [Ri ght Arm] Pulse Oximetry 97 96 Oxygen Delivery Me thod 10/09/24 18:46 10/09/24 19:00 10/09/24 19:01 Temperature Pulse Rate 118 H 108 H 98 Pulse Rate [Pulse Oximeter] Respiratory Rate 20 18 22 Blood Pressure 147/112 H 154/107 H Blood Pressure [Ri ght Arm] Pulse Oximetry 97 95 94 Oxygen Delivery Tn thod 10/09/24 19:02 10/09/24 19:15 10/09/24 19:16 Temperature Pulse Rate 99 112 H 109 H Pulse Rate [Pulse Oximeter] Respiratory Rate 29 H 10 L 17 Blood Pressure 142/89 H Blood Pressure [Ri ght Arm] Pulse Oximetry 96 95 94 Oxygen Delivery Me thod 10/09/24 19:30 10/09/24 19:32 10/09/24 20:03 Temperature Pulse Rate 109 H 113 H 95 Pulse Rate [Pulse Oximeter] Respiratory Rate 23 24 23 Blood Pressure 151/95 H Blood Pressure [Ri ght Arm] Pulse Oximetry 95 95 95 Oxygen Delivery Me thod 10/09/24 20:05 10/09/24 20:06 10/09/24 20:15 Temperature Pulse Rate 103 H 105 H 108 H Pulse Rate [Pulse Oximeter] Respiratory Rate 20 16 19 Blood Pressure 119/69 Blood Pressure [Ri ght Arm] Pulse Oximetry 97 97 94 Oxygen Delivery Me thod 10/09/24 20:16 10/09/24 20:30 10/09/24 20:31 Temperature Pulse Rate 106 H 112 H Pulse Rate [Pulse Oximeter] Respiratory Rate 18 13 15 Blood Pressure 130/81 112/70 Blood Pressure [Ri ght Arm] Pulse Oximetry 94 97 98 Oxygen Delivery Me thod 10/09/24 20:45 10/09/24 20:47 10/09/24 21:00 Temperature Pulse Rate 107 H 123 H 118 H Pulse Rate [Pulse Oximeter] Respiratory Rate 15 16 19 Blood Pressure 110/72 Blood Pressure [Ri ght Arm] Pulse Oximetry 95 97 96 Oxygen Delivery Me thod 10/09/24 21:01 10/09/24 21:15 10/09/24 21:19 Temperature Pulse Rate 122 H Pulse Rate [Pulse Oximeter] Respiratory Rate 21 5 L 9 L Blood Pressure 127/78 Blood Pressure [Ri ght Arm] Pulse Oximetry 94 Oxygen Delivery Me thod 10/09/24 21:30 10/09/24 21:45 10/09/24 22:10 Temperature Pulse Rate 118 H 113 H 107 H Pulse Rate [Pulse Oximeter] Respiratory Rate 17 22 Blood Pressure Blood Pressure [Ri ght Arm] Pulse Oximetry 95 93 Oxygen Delivery Me thod 10/09/24 22:42 10/09/24 23:54 10/10/24 02:28 Temperature 98.3 F 98.3 F Pulse Rate 95 Pulse Rate [Pulse Oximeter] 100 85 Respiratory Rate 18 19 Blood Pressure Blood Pressure [Ri ght Arm] 112/65 131/81 Pulse Oximetry 94 94 Oxygen Delivery Me thod Room Air Room Air 10/10/24 03:27 10/10/24 07:00 10/10/24 08:00 Temperature 98.9 F 98.7 F Pulse Rate 88 Pulse Rate [Pulse Oximeter] 94 Respiratory Rate 20 16 Blood Pressure Blood Pressure [Ri ght Arm] 118/80 119/89 Pulse Oximetry 98 97 Oxygen Delivery Me thod Room Air Room Air 10/10/24 11:30 10/10/24 14:53 Temperature 98.8 F 100.3 F H Pulse Rate Pulse Rate [Pulse Oximeter] 100 112 H Respiratory Rate 16 16 Blood Pressure Blood Pressure [Ri ght Arm] 139/74 114/69 Pulse Oximetry 95 96 Oxygen Delivery Me thod Room Air Room Air Documenting provider has reviewed patient's vital signs: yes Labs Labs: Laboratory Results - last 24 hr 10/09/24 10/09/24 10/09/24 17:50 18:04 18:30 WBC 23.24 H RBC 4.95 Hgb 15.5 Hct 43.5 MCV 88 MCH 31 MCHC 36 RDW Coeff of Sasha 12.7 Plt Count 239 Neut % (Auto) 85.4 H Lymph % (Auto) 5.5 L [place] % (Auto) 8.4 Eos % (Auto) 0.1 Baso % (Auto) 0.0 Neut # (Auto) 19.80 H Lymph # (Auto) 1.30 [place] # (Auto) 2.00 H Eos # (Auto) 0.00 Baso # (Auto) 0.00 Abs Immat Gran (auto) 0.10 Imm/Tot Granulo (auto) 0.6 INR 1.12 H APTT 35 H Sodium 135 Potassium 3.0 L Chloride 97 Carbon Dioxide 28 Anion Gap 10 BUN 29 Creatinine 1.1 Estimated Creat Clear Estimated GFR 76 Glucose 124 H Lactate 2.2 H Calcium 9.7 Total Bilirubin 2.2 H Direct Bilirubin 0.0 AST 33 ALT 21 Alkaline Phosphatase 83 Total Protein 8.0 Albumin 4.3 Amylase 47 Lipase 20 L Urine Color Dark yellow Urine Appearance Clear Urine pH 6.0 Ur Specific [place] 1.020 Urine Protein 2+ A Urine Glucose (UA) Negative Urine Ketones Negative Urine Blood Negative Urine Nitrite Positive A Urine Bilirubin 1+ A Urine Urobilinogen 4.0 A Ur Leukocyte Esterase Negative Urine RBC 0-2 Urine WBC 0-2 Ur Squamous Epith Cells None Amorphous Sediment Few A Urine Bacteria None Gastric Occult Blood Ethyl Alcohol < 0.01 POC Troponin I 0.00 L Blood Type O Positive Antibody Screen NEGATIVE 10/09/24 10/09/24 10/10/24 19:21 21:13 00:13 WBC RBC Hgb 13.3 L Hct MCV MCH MCHC RDW Coeff of Sasha Plt Count Neut % (Auto) Lymph % (Auto) [place] % (Auto) Eos % (Auto) Baso % (Auto) Neut # (Auto) Lymph # (Auto) [place] # (Auto) Eos # (Auto) Baso # (Auto) Abs Immat Gran (auto) Imm/Tot Granulo (auto) INR APTT Sodium Potassium Chloride Carbon Dioxide Anion Gap BUN Creatinine Estimated Creat Clear Estimated GFR Glucose Lactate 0.9 Calcium Total Bilirubin Direct Bilirubin AST ALT Alkaline Phosphatase Total Protein Albumin Amylase Lipase Urine Color Urine Appearance Urine pH Ur Specific [place] Urine Protein Urine Glucose (UA) Urine Ketones Urine Blood Urine Nitrite Urine Bilirubin Urine Urobilinogen Ur Leukocyte Esterase Urine RBC Urine WBC Ur Squamous Epith Cells Amorphous Sediment Urine Bacteria Gastric Occult Blood POSITIVE A Ethyl Alcohol POC Troponin I Blood Type Antibody Screen 10/10/24 05:57 WBC 16.82 H RBC 3.72 L Hgb 11.8 L Hct 33.6 L MCV 90 MCH 32 MCHC 35 RDW Coeff of Sasha Plt Count 183 Neut % (Auto) Lymph % (Auto) [place] % (Auto) Eos % (Auto) Baso % (Auto) Neut # (Auto) Lymph # (Auto) [place] # (Auto) Eos # (Auto) Baso # (Auto) Abs Immat Gran (auto) Imm/Tot Granulo (auto) INR APTT Sodium 135 Potassium 3.4 L Chloride 104 Carbon Dioxide 26 Anion Gap 5 L BUN 21 Creatinine 1.0 Estimated Creat Clear 89.05 Estimated GFR 85 Glucose 110 Lactate Calcium 8.2 L Total Bilirubin 2.2 H Direct Bilirubin 0.3 AST 25 ALT 14 Alkaline Phosphatase 67 Total Protein 6.0 Albumin 3.1 L Amylase Lipase 19 L Urine Color Urine Appearance Urine pH Ur Specific [place] Urine Protein Urine Glucose (UA) Urine Ketones Urine Blood Urine Nitrite Urine Bilirubin Urine Urobilinogen Ur Leukocyte Esterase Urine RBC Urine WBC Ur Squamous Epith Cells Amorphous Sediment Urine Bacteria Gastric Occult Blood Ethyl Alcohol POC Troponin I Blood Type Antibody Screen
[2024-10-10] MEDS: ACETAMINOPHEN 500 MG TABLET 1000 MG PO (15:17)
--- NOTE | 2024-10-10 18:29 | PC.NURSE ---
Pt doing well today. VSS. Denies pain. No nausea or vomiting episodes. Tolerating IV antibiotics well. Transferring via two assist pivot. Started on clear liquid diet and tolerating well. Daughter, Alicia, was updated at 1700. Pt uses call light appropriately and is resting well at this time.
[2024-10-11] VITALS (8 sets, daily range): BP systolic 106–125; BP diastolic 63–92; PULSE 82–95; RESP 16–18; TEMP 36.7–37; O2SAT 95–97
[2024-10-11] MEDS: LACTATED RINGERS 1000 ML 1,000 ML 125 ML IV ×2 (00:54→09:15)
[2024-10-11] MEDS: HYDROmorphone 0.5 mg/0.5 ml inj IVP ×2 (01:19→21:06)
[2024-10-11] MEDS: PIPERACILLIN/TAZOBACTAM 3.375 GM in 0.9 % SODIUM CHLORIDE Mini-bag 100 ML IVPB ×4 (02:37→21:05)
--- NOTE | 2024-10-11 06:33 | PC.NURSE ---
End of shift report [id number]: VSS. Afebrile. Overnight pt stated it ?feels like there is a semi sitting on his legs? prn pain med offered and given, upon reassessment pt reports improvement. Denies N/V. Ambulates 2 assist pivot with gait belt. Tolerating clear liquid diet. ?
[2024-10-11 06:40] LABS: Hemoglobin* 11.7 gm/dL (13.5-17.5); Mean Corpuscular HGB Conc 34 gm/dL (32-36); Mean Corpuscular Hemoglobin 31 pg (26-34); Mean Corpuscular Volume 91 fL (80-100); Platelet Count* 152 K/uL (140-440); Red Blood Count 3.73 m/uL (4.30-5.90); White Blood Count* 12.88 K/uL (4.50-11.00)
[2024-10-11 06:44] LABS: Slide Review Reflex No
[2024-10-11 06:51] LABS: Chloride* 103 mmol/L (96-114); Sodium* 134 mmol/L (135-149)
[2024-10-11 06:54] LABS: Anion Gap 8 mEq/L (7-15); Blood Urea Nitrogen* 13 mg/dL (7-30); Calcium* 7.9 mg/dL (8.4-10.6); Carbon Dioxide* 23 mmol/L (20-32); Est. Creatinine Clearance* 89.05; Estimated Glomerular Filt Rate 85 ml/min; Glucose* 99 mg/dL (60-115)
[2024-10-11 07:36] LABS: Albumin* 3.2 g/dL (3.3-5.0)
[2024-10-11 07:39] LABS: Alanine Aminotransferase* 16 U/L (4-50); Alkaline Phosphatase* 73 U/L (40-150); Aspartate Amino Transferase* 25 U/L (12-35); Bilirubin Direct* 1.4 mg/dL (0.0-0.5); Bilirubin Total* 4.9 mg/dL (0.1-1.5); Magnesium* 1.3 mg/dL (1.5-2.6); Total Protein* 6.3 g/dL (6.0-8.3)
[2024-10-11] MEDS: POTASSIUM BICARB 25 MEQ EFFERVESCENT TAB 50 MEQ PO (09:04)
[2024-10-11] MEDS: GABAPENTIN 300 MG CAPSULE 900 MG PO ×4 (09:05→21:05)
[2024-10-11] MEDS: PANTOPRAZOLE SODIUM 40 MG INJ IVP (09:05)
[2024-10-11] MEDS: SODIUM CHLORIDE 0.9 % (FLUSH) 10 ML SYRINGE 5 ML IVF ×2 (09:06→21:06)
--- NOTE | 2024-10-11 11:14 | PM.GSPN ---
Subjective Subjective Date Seen: 10/11/24 Interval history: Tad states that he is not feeling very well today. No bowel movements. He did have more nausea per his nurse on clear liquid diet. Low-grade fever overnight. Exam Narrative: Exam Narrative: General appearance: Alert, cooperative, and in no distress Pulmonary: Breathing nonlabored on room air Cardiovascular Heart: Regular rate Extremities: Hips contracted Gastrointestinal Abdominal: Distended. Patient complains of mild tenderness to deep palpation in the right upper quadrant. Musculoskeletal: Extremities: Upper: Both upper extremities have normal joint range of motion and intact strength. Lower: Both lower extremities have normal joint range of motion and intact strength. Skin: Normal skin color, texture, and turgor. Neurologic: No focal deficits Psychiatric: Alert, oriented, cooperative, normal affect. Const: Vital Signs, click to edit/add: Vital Signs - 24 hr 10/10/24 11:30 10/10/24 14:53 10/10/24 15:00 Temperature 98.8 F 100.3 F H Pulse Rate Pulse Rate [Pulse Oximeter] 100 112 H 112 H Respiratory Rate 16 16 16 Blood Pressure [Ri ght Arm] 139/74 114/69 Pulse Oximetry 95 96 Oxygen Delivery Me thod Room Air Room Air 10/10/24 15:00 10/10/24 15:17 10/10/24 16:22 Temperature 100.3 F H 99.3 F Pulse Rate 100 Pulse Rate [Pulse Oximeter] Respiratory Rate Blood Pressure [Ri ght Arm] Pulse Oximetry Oxygen Delivery Me thod 10/10/24 16:27 10/10/24 19:00 10/10/24 22:59 Temperature 99.3 F 98.7 F 99.1 F Pulse Rate Pulse Rate [Pulse Oximeter] 96 95 Respiratory Rate 16 16 Blood Pressure [Ri ght Arm] 98/63 105/71 Pulse Oximetry 93 97 Oxygen Delivery Me thod Room Air Room Air 10/10/24 23:00 10/11/24 01:42 10/11/24 03:00 Temperature 98.6 F Pulse Rate 86 Pulse Rate [Pulse Oximeter] 95 87 Respiratory Rate 16 18 Blood Pressure [Ri ght Arm] 111/63 Pulse Oximetry 97 Oxygen Delivery Me thod Room Air 10/11/24 07:00 10/11/24 07:45 Temperature 98.0 F Pulse Rate 88 Pulse Rate [Pulse Oximeter] 95 Respiratory Rate 16 Blood Pressure [Ri ght Arm] 125/92 H Pulse Oximetry 97 Oxygen Delivery Me thod Room Air Labs/Imaging Labs Labs: White blood cell count is down slightly today to 12.8. Potassium 3.4 Magnesium 1.3 Total bilirubin 4.9 Direct bilirubin 1.4 Remainder of LFTs normal. Imaging Imaging: US real still pending. Gb wall appears thickened. There may be sludge noted within. Progress Note:A&P Assessment and plan (1) Acute hypokalemia: Status: Acute (2) Acute cholecystitis: Status: Acute (3) Contracture, hip: Status: Acute (4) GERD (gastroesophageal reflux disease): Status: Acute (5) Mononeuritis multiplex: Status: Acute (6) Hiatal hernia: Status: Acute Plan The patient is a 64-year-old male with neuropathy and hip contracture who presented with a septic type picture found to have severe gallbladder distension and gallbladder wall thickening concerning for cholecystitis, preliminarily a calculus, however abdominal ultrasound results still pending. -patient is still having low-grade fevers. LFTs are up today. I am concerned about worsening cholecystitis. I do think that given his leg contractures an overall picture that laparoscopic cholecystectomy would be very difficult in this acute setting. I think he would best benefit from cholecystostomy tube. Outpatient clinic if the gallbladder is decompressed and he improves, consideration could be had electively for cholecystectomy with attempt at laparoscopy and possible open if unable to physically perform this given the hip contractures. It is also possible to avoid cholecystectomy if he does not have a significant stone burden and for cholangiogram shows patent cystic duct on repeat tube check after resolution of symptoms. -continue antibiotics -hospitalist to work on transfer to outside facility for cholecystostomy placement.
[2024-10-11] MEDS: POTASSIUM CHLORIDE 10 MEQ CAPSULE ER 40 MEQ PO (12:25)
[2024-10-11] MEDS: MAGNESIUM IV 2 GM/50 ML PIGGYBACK IVPB (12:25)
--- NOTE | 2024-10-11 14:40 | PC.NURSE ---
Pt is doing well today. VSS. Denies pain to the abdomen. Denies nausea. Pt tolerating clear liquid diet well. Pt transfers with one assist pivot. Resting well at this time.
--- NOTE | 2024-10-11 16:14 | P.IMPN_ITS ---
Assessment and Plan Assessment and plan (1) Acute cholecystitis: Problem comment: CT shows Fluid dilation of the gallbladder with diffusely edematous appearance of the wall and pericholecystic inflammatory changes. No definite cholelithiasis. No biliary dilatation. C/w acute cholecystitis General surgery consult raises concern about difficulty of laparoscopic cholecystectomy given chronic he hip contractures. Medically managed for now. Possible cholecystostomy tube depending on clinical course. Total bilirubin 2.2, AST 33, ALT 21, alk-phos 83, lipase 20 Clinically improved with IV fluids and Zosyn. If clinically improving outpatient follow-up with surgery at [place] or [place]. If not improving or deteriorating obtain HIDA scan or transfer for tertiary care surgery management Status: Acute (2) Acute hypokalemia: Problem comment: Continue potassium replacement and monitoring Status: Acute (3) Contracture, hip: Problem comment: Chronic bilateral hip contractures limiting abdominal exposure and positioning for surgery. 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 Has been taking 8886-0854 mg of gabapentin per day. In patient I reduce this to 3600 mg daily. Will give a trial of baclofen for his lower extremity neuropathic symptoms. Recommend establishing with Neurology to further review evaluation management of his mononeuritis multiplex/neuropathy Status: Acute (6) Hiatal hernia: Problem comment: Moderate hiatal hernia noted on CT 10/09/24 Status: Acute Plan Continue in hospital for IV antibiotics for management of acute cholecystitis. Monitor vitals, labs, clinical status to determine whether improving and can be managed surgically as an outpatient or whether not improving or deteriorating which would lead to transfer. Total Time Spent Total Time Spent: Total time spent today is 60 minutes in coordination of care and discussing with patient and other providers ongoing management Subjective Date Seen: 10/11/24 Interval history: Steven Montoya is a 64 year old male past medical history significant for mononeuritis multiplex with neuropathic pain, B12 deficiency, GERD, osteoarthritis, history of alcohol dependence sober > 1 year is admitted to the medical floor from the ED for further management of sepsis in setting of acute cholecystitis. Patient is able to provide history but somewhat vague and not consistent with dates/timing. He reports abdominal pain and bloating for the past 5 days, worsening over the last 24 hours. Describes pain as crampy. Reports dark coffee-ground vomitus the past few days. History of alcohol dependence but denies alcohol use in the last year. No known history of varices. Does have a history of pancreatitis. Does not take any blood thinners/anticoagulant. Denies fevers or chills. Denies headache or dizziness. Denies chest pain or shortness of breath. Last normal bowel movement was maybe 4-5 days ago. Small stools have otherwise been without blood. No change in urination. He reports that he has not drank any alcohol in the past year. ED report states caregiver has seen beer cans in his trash. He tells me this is because he has visitors who throw their cans in there. Lives alone. Has a caregiver every other week. Independent with ADLs. Nonambulatory. Wheelchair-bound secondary to his mononeuritis. Is able to stand and pivot. Denies history of anesthesia complications, personal/family bleeding disorders. Nonsmoker. PCP is Dr. Hightower. Patient is on gabapentin 800 mg 6 or 7 times a day. I explained that this was above the recommended maximum dose of gabapentin. He is using this for pain associated with his neuropathy/vasculitis with mononeuritis multiplex. At the time of admission CT scan showed findings consistent with acute cholecystitis. Patient has received fluid resuscitation and Zosyn. Notably the patient is unable to extend at the hips. Both hips have contracture at about 90? of flexion. 10/10/2024: Patient reports feeling much better today. In consultation with surgery there is concerned that laparoscopic cholecystectomy would be very difficult with his hip contractures. 10/11/2024: Patient reports generally feeling better today. No significant abdominal pain. He reports being hungry. Low-grade fever of 100.3 yesterday afternoon but not since then. Increase in bilirubin today. I discussed with Dr. Martino and then with General surgery at [facility]. They recommended continued medical management with outpatient surgical follow-up unless the patient does not improve to be able to be discharged or clinically deteriorates. They recommend a HIDA scan to further evaluate if clinical concern Exam Narrative: Exam Narrative: He is alert and appears in no distress. Respirations are clear to auscultation. Cardiovascular: S1, S2, regular rate and rhythm. Abdomen is soft without tenderness or mass. Extremities without edema. Good perfusion. Const: Vital Signs, click to edit/add: Vital Signs - 24 hr 10/10/24 16:22 10/10/24 16:27 10/10/24 19:00 Temperature 99.3 F 99.3 F 98.7 F Pulse Rate Pulse Rate [Pulse Oximeter] 96 Respiratory Rate 16 Blood Pressure [Ri ght Arm] 98/63 Pulse Oximetry 93 Oxygen Delivery Me thod Room Air 10/10/24 22:59 10/10/24 23:00 10/11/24 01:42 Temperature 99.1 F Pulse Rate 86 Pulse Rate [Pulse Oximeter] 95 95 Respiratory Rate 16 16 Blood Pressure [Ri ght Arm] 105/71 Pulse Oximetry 97 Oxygen Delivery Me thod Room Air 10/11/24 03:00 10/11/24 07:00 10/11/24 07:45 Temperature 98.6 F 98.0 F Pulse Rate 88 Pulse Rate [Pulse Oximeter] 87 95 Respiratory Rate 18 16 Blood Pressure [Ri ght Arm] 111/63 125/92 H Pulse Oximetry 97 97 Oxygen Delivery Me thod Room Air Room Air 10/11/24 11:00 10/11/24 15:00 Temperature 98.1 F 98.3 F Pulse Rate Pulse Rate [Pulse Oximeter] 84 92 Respiratory Rate 18 18 Blood Pressure [Ri ght Arm] 111/80 114/74 Pulse Oximetry 96 97 Oxygen Delivery Me thod Room Air Room Air Documenting provider has reviewed patient's vital signs: yes Labs Labs: Laboratory Results - last 24 hr 10/11/24 10/11/24 10/11/24 06:02 07:23 07:25 WBC 12.88 H RBC 3.73 L Hgb 11.7 L Hct 34.0 L MCV 91 MCH 31 MCHC 34 Plt Count 152 Sodium 134 L Potassium 3.0 L Chloride 103 Carbon Dioxide 23 Anion Gap 8 BUN 13 Creatinine 1.0 Estimated Creat Clear 89.05 Estimated GFR 85 Glucose 99 Calcium 7.9 L Magnesium 1.3 L Total Bilirubin 4.9 H Direct Bilirubin 1.4 H AST 25 ALT 16 Alkaline Phosphatase 73 Total Protein 6.3 Albumin 3.2 L Lab Acknowledgement Test Added Test Added
[2024-10-11] MEDS: BACLOFEN 10 MG TABLET 5 MG PO ×2 (16:54→21:05)
[2024-10-11] MEDS: OMEPRAZOLE 20 MG CAPSULE DR PO (21:05)
--- NOTE | 2024-10-11 23:09 | PC.NURSE ---
Patient pivot transfers into wheelchair with assist of one or two. Patient is tolerating a full liquid diet. Patients IV SL and vitals stable. He utilizes bed and chair alarm for safety.
[2024-10-12] VITALS (8 sets, daily range): BP systolic 104–127; BP diastolic 63–88; PULSE 78–91; RESP 16–18; TEMP 36.7–37.1; O2SAT 94–97
[2024-10-12] MEDS: PIPERACILLIN/TAZOBACTAM 3.375 GM in 0.9 % SODIUM CHLORIDE Mini-bag 100 ML IVPB ×4 (02:38→21:03)
[2024-10-12] MEDS: HYDROmorphone 0.5 mg/0.5 ml inj IVP ×2 (03:59→23:11)
[2024-10-12] MEDS: ONDANSETRON 2 MG/ML inj 4 MG IVP ×2 (04:00→23:11)
[2024-10-12 06:28] LABS: Hemoglobin* 11.8 gm/dL (13.5-17.5); Mean Corpuscular HGB Conc 35 gm/dL (32-36); Mean Corpuscular Hemoglobin 32 pg (26-34); Mean Corpuscular Volume 91 fL (80-100); Platelet Count* 152 K/uL (140-440); Red Blood Count 3.73 m/uL (4.30-5.90); White Blood Count* 10.94 K/uL (4.50-11.00)
[2024-10-12 06:38] LABS: Albumin* 3.1 g/dL (3.3-5.0); Chloride* 103 mmol/L (96-114); Slide Review Reflex No; Sodium* 136 mmol/L (135-149)
[2024-10-12 06:39] LABS: Potassium* 3.2 mmol/L (3.6-5.1)
[2024-10-12 06:41] LABS: Alanine Aminotransferase* 15 U/L (4-50); Alkaline Phosphatase* 82 U/L (40-150); Anion Gap 7 mEq/L (7-15); Aspartate Amino Transferase* 20 U/L (12-35); Bilirubin Direct* 0.7 mg/dL (0.0-0.5); Bilirubin Total* 2.1 mg/dL (0.1-1.5); Blood Urea Nitrogen* 8 mg/dL (7-30); Carbon Dioxide* 26 mmol/L (20-32); Creatinine* 0.9 mg/dL (0.5-1.5); Est. Creatinine Clearance* 89.05; Estimated Glomerular Filt Rate 97 ml/min; Total Protein* 6.4 g/dL (6.0-8.3)
--- NOTE | 2024-10-12 06:41 | PC.NURSE ---
nd of shift [id number]: A&O pleasant and cooperative. VSS. Reporting pain in legs radiating to hips. See eMAR for interventions. No BMs overnight. Up w/ A1 to stand at bedside to use urinal. Tolerates well. Voiding q1-2 hours. Using call light appropriately. ?
[2024-10-12 06:42] LABS: Glucose* 95 mg/dL (60-115); Magnesium* 1.9 mg/dL (1.5-2.6)
[2024-10-12 06:56] LABS: C Reactive Protein* > 27.0 mg/dL (0.5-1.0)
[2024-10-12] MEDS: GABAPENTIN 300 MG CAPSULE 900 MG PO ×3 (08:41→18:29)
[2024-10-12] MEDS: BACLOFEN 10 MG TABLET 5 MG PO ×3 (08:42→21:01)
[2024-10-12] MEDS: SODIUM CHLORIDE 0.9 % (FLUSH) 10 ML SYRINGE 5 ML IVF ×2 (08:44→21:02)
[2024-10-12] MEDS: OMEPRAZOLE 20 MG CAPSULE DR PO ×2 (08:44→21:01)
--- NOTE | 2024-10-12 09:14 | REH.OT ---
Per nursing, pt may need OT, however no official orders. OT has conversation w/ pt about current needs and if OT in hospital would be beneficial. Pt declines OT during IP stay at this time, however feels HHOT would be beneficial. MD and nursing notified.
--- NOTE | 2024-10-12 12:02 | P.IMPN_ITS ---
Assessment and Plan Assessment and plan (1) Acute cholecystitis: Problem comment: On admission CT shows Fluid dilation of the gallbladder with diffusely edematous appearance of the wall and pericholecystic inflammatory changes. No definite cholelithiasis. No biliary dilatation. C/w acute cholecystitis. Ultrasound showed sludge and/or nonshadowing stones in the gallbladder with diffuse gallbladder wall thickening. Common bile duct not well visualized but not obviously dilated. General surgery consult raises concern about difficulty of laparoscopic cholecystectomy given chronic he hip contractures. Medically managed for now. Possible cholecystostomy tube or transfer for surgery depending on clinical course. Clinically improved with IV fluids and Zosyn. If clinically improving outpatient follow-up with surgery at [place] or [place]. If not improving or deteriorating obtain HIDA scan or transfer for tertiary care surgery management Status: Acute (2) Acute hypokalemia: Problem comment: Continue potassium replacement and monitoring Status: Acute (3) Contracture, hip: Problem comment: Chronic bilateral hip contractures limiting abdominal exposure and positioning for surgery. 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 Has been taking 5438-8414 mg of gabapentin per day. In patient I reduce this to 3600 mg daily. Will give a trial of baclofen for his lower extremity neuropathic symptoms. Recommend establishing care with Neurology to further review evaluation management of his mononeuritis multiplex/neuropathy Status: Acute (6) Hiatal hernia: Problem comment: Moderate hiatal hernia noted on CT 10/09/24 Status: Acute Plan Continue in hospital for medical treatment of acute cholecystitis. Monitor vitals, symptoms and labs to assess for worsening. Discharge for outpatient follow-up if doing well. Transfer to tertiary care if not improving or deteriorating Total Time Spent Total Time Spent: Total time spent today is 40 minutes in discussing management of neuropathy and cholecystitis with patient and his daughter. Subjective Date Seen: 10/12/24 Interval history: Steven Montoya is a 64 year old male past medical history significant for mononeuritis multiplex with neuropathic pain, B12 deficiency, GERD, osteoarthritis, history of alcohol dependence sober > 1 year is admitted to the medical floor from the ED for further management of sepsis in setting of acute cholecystitis. Patient is able to provide history but somewhat vague and not consistent with dates/timing. He reports abdominal pain and bloating for the past 5 days, worsening over the last 24 hours. Describes pain as crampy. Reports dark coffee-ground vomitus the past few days. History of alcohol dependence but denies alcohol use in the last year. No known history of varices. Does have a history of pancreatitis. Does not take any blood thinners/anticoagulant. Denies fevers or chills. Denies headache or dizziness. Denies chest pain or shortness of breath. Last normal bowel movement was maybe 4-5 days ago. Small stools have otherwise been without blood. No change in urination. He reports that he has not drank any alcohol in the past year. ED report states caregiver has seen beer cans in his trash. He tells me this is because he has visitors who throw their cans in there. Lives alone. Has a caregiver every other week. Independent with ADLs. Nonambulatory. Wheelchair-bound secondary to his mononeuritis. Is able to stand and pivot. Denies history of anesthesia complications, personal/family bleeding disorders. Nonsmoker. PCP is Dr. Hightower. Patient is on gabapentin 800 mg 6 or 7 times a day. I explained that this was above the recommended maximum dose of gabapentin. He is using this for pain associated with his neuropathy/vasculitis with mononeuritis multiplex. At the time of admission CT scan showed findings consistent with acute cholecystitis. Patient has received fluid resuscitation and Zosyn. Notably the patient is unable to extend at the hips. Both hips have contracture at about 90? of flexion. 10/10/2024: Patient reports feeling much better today. In consultation with surgery there is concerned that laparoscopic cholecystectomy would be very difficult with his hip contractures. 10/11/2024: Patient reports generally feeling better today. No significant abdominal pain. He reports being hungry. Low-grade fever of 100.3 yesterday afternoon but not since then. Increase in bilirubin today. I discussed with Dr. Martino and then with General surgery at [facility]. They recommended continued medical management with outpatient surgical follow-up unless the patient does not improve to be able to be discharged or clinically deteriorates. They recommend a HIDA scan to further evaluate if clinical concern. 10/12/2024: Patient continues to report feeling better. He is hungry and would like to eat. He has had full liquids yesterday without any problems. Specifically denies pain, fever, nausea. Exam Narrative: Exam Narrative: He is alert and appears in no distress. Respirations are clear to auscultation. Cardiovascular: S1, S2, regular rate and rhythm. Abdomen: Bowel sounds active. Abdomen is soft without tenderness or mass. Const: Vital Signs, click to edit/add: Vital Signs - 24 hr 10/11/24 15:00 10/11/24 15:00 10/11/24 15:00 Temperature 98.3 F Pulse Rate 92 Pulse Rate [Pulse Oximeter] 92 92 Respiratory Rate 18 18 Blood Pressure [Ri ght Arm] 114/74 Pulse Oximetry 97 Oxygen Delivery Me thod Room Air 10/11/24 18:56 10/11/24 23:25 10/12/24 00:36 Temperature 98.3 F 98.3 F Pulse Rate 84 Pulse Rate [Pulse Oximeter] 94 82 Respiratory Rate 17 16 Blood Pressure [Ri ght Arm] 119/78 106/74 Pulse Oximetry 96 95 Oxygen Delivery Me thod Room Air Room Air 10/12/24 03:15 10/12/24 07:00 10/12/24 07:00 Temperature 98.5 F Pulse Rate 79 Pulse Rate [Pulse Oximeter] 84 80 Respiratory Rate 16 18 Blood Pressure [Ri ght Arm] 114/88 Pulse Oximetry 96 Oxygen Delivery Me thod Room Air 10/12/24 07:55 10/12/24 11:00 Temperature 98.7 F 98.6 F Pulse Rate Pulse Rate [Pulse Oximeter] 80 89 Respiratory Rate 18 16 Blood Pressure [Ri ght Arm] 106/67 104/69 Pulse Oximetry 97 94 Oxygen Delivery Me thod Room Air Room Air Documenting provider has reviewed patient's vital signs: yes Labs Labs: Laboratory Results - last 24 hr 10/12/24 05:50 WBC 10.94 RBC 3.73 L Hgb 11.8 L Hct 34.0 L MCV 91 MCH 32 MCHC 35 Plt Count 152 Sodium 136 Potassium 3.2 L Chloride 103 Carbon Dioxide 26 Anion Gap 7 BUN 8 Creatinine 0.9 Estimated Creat Clear 89.05 Estimated GFR 97 Glucose 95 Calcium 8.0 L Magnesium 1.9 Total Bilirubin 2.1 H Direct Bilirubin 0.7 H AST 20 ALT 15 Alkaline Phosphatase 82 C-Reactive Protein > 27.0 H Total Protein 6.4 Albumin 3.1 L
[2024-10-12] MEDS: POTASSIUM BICARB 25 MEQ EFFERVESCENT TAB 50 MEQ PO (12:14)
[2024-10-12] MEDS: 0.9 % SODIUM CHLORIDE 250 ml IV (12:14)
--- NOTE | 2024-10-12 15:23 | PC.NURSE ---
Pt doing well today. VSS. Denies pain and nausea. Standing up at bedside with one assist to use urinal. Pt tolerating regular diet. Resting well at this time.
[2024-10-12] MEDS: MELATONIN 3 MG TABLET PO (23:11)
--- NOTE | 2024-10-13 | PC.NURSE ---
Patient up with assist of one and pivot transfer to the wheelchair. Patient utilized scheduled medications for pain. He is tolerating a regular diet, vitals are stable, and antibiotics received as ordered.
[2024-10-13] MEDS: GABAPENTIN 300 MG CAPSULE 900 MG PO ×2 (00:09→06:06)
[2024-10-13 02:58] VITALS: BP 117/76; PULSE 85; RESP 16; TEMP 36.5; O2SAT 92
[2024-10-13] MEDS: PIPERACILLIN/TAZOBACTAM 3.375 GM in 0.9 % SODIUM CHLORIDE Mini-bag 100 ML IVPB ×2 (02:59→09:26)
[2024-10-13] MEDS: 0.9 % SODIUM CHLORIDE 250 ml IV (03:01)
[2024-10-13] MEDS: HYDROmorphone 0.5 mg/0.5 ml inj IVP (04:33)
[2024-10-13 06:01] LABS: Hematocrit 31.3 % (37.0-53.0); Hemoglobin* 10.7 gm/dL (13.5-17.5); Mean Corpuscular HGB Conc 34 gm/dL (32-36); Mean Corpuscular Hemoglobin 31 pg (26-34); Mean Corpuscular Volume 92 fL (80-100); Platelet Count* 185 K/uL (140-440); Red Blood Count 3.42 m/uL (4.30-5.90); White Blood Count* 8.35 K/uL (4.50-11.00)
[2024-10-13 06:04] LABS: Slide Review Reflex No
[2024-10-13 06:13] LABS: Chloride* 106 mmol/L (96-114); Sodium* 137 mmol/L (135-149)
[2024-10-13 06:14] LABS: Potassium* 3.3 mmol/L (3.6-5.1)
[2024-10-13 06:16] LABS: Alanine Aminotransferase* 11 U/L (4-50); Alkaline Phosphatase* 71 U/L (40-150); Anion Gap 5 mEq/L (7-15); Aspartate Amino Transferase* 16 U/L (12-35); Bilirubin Direct* 0.4 mg/dL (0.0-0.5); Bilirubin Total* 1.2 mg/dL (0.1-1.5); Blood Urea Nitrogen* 8 mg/dL (7-30); Carbon Dioxide* 26 mmol/L (20-32); Creatinine* 0.8 mg/dL (0.5-1.5); Est. Creatinine Clearance* 89.05; Estimated Glomerular Filt Rate 100 ml/min; Total Protein* 6.1 g/dL (6.0-8.3)
[2024-10-13 06:17] LABS: Calcium* 7.9 mg/dL (8.4-10.6); Glucose* 96 mg/dL (60-115)
[2024-10-13 06:31] LABS: C Reactive Protein* 18.7 mg/dL (0.5-1.0)
[2024-10-13 07:00] VITALS: BP 120/83; PULSE 82; RESP 18; TEMP 36.7; O2SAT 99
--- NOTE | 2024-10-13 07:22 | PC.NURSE ---
Shift note 23-: Pt is alert and oriented, calm and cooperative, VSS on room air. Dilaudid given for breakthrough pain with pt reporting relief. Pt stated that once he is back home and able to take his full dose of gabapentin he will be fine. Up with 1 assist pivoting to wheelchair or standing at bedside to use urinal. Pt reported feeling much better and is hopeful to d/c home today.
--- NOTE | 2024-10-13 07:49 | PM.GSPN ---
Subjective Subjective Date Seen: 10/13/24 Interval history: CT feels much better today. He is not having abdominal pain or nausea. He tolerated a regular diet today. Exam Narrative: Exam Narrative: General: No acute distress CV: Regular rate Abdomen: Protuberant but soft and nontender. Negative Amanda sign Const: Vital Signs, click to edit/add: Vital Signs - 24 hr 10/12/24 07:55 10/12/24 11:00 10/12/24 15:00 Temperature 98.7 F 98.6 F 98.0 F Pulse Rate Pulse Rate [Pulse Oximeter] 80 89 86 Respiratory Rate 18 16 16 Blood Pressure [Ri ght Arm] 106/67 104/69 116/63 Pulse Oximetry 97 94 96 Oxygen Delivery Me thod Room Air Room Air Room Air 10/12/24 15:00 10/12/24 15:00 10/12/24 18:18 Temperature 98.1 F Pulse Rate 91 Pulse Rate [Pulse Oximeter] 86 86 Respiratory Rate 16 16 Blood Pressure [Ri ght Arm] 127/75 Pulse Oximetry 96 Oxygen Delivery Me thod Room Air 10/12/24 23:00 10/12/24 23:00 10/13/24 02:58 Temperature 97.7 F Pulse Rate 78 Pulse Rate [Pulse Oximeter] 85 85 Respiratory Rate 16 16 Blood Pressure [Ri ght Arm] 117/76 Pulse Oximetry 92 Oxygen Delivery Me thod Room Air Labs/Imaging Labs Labs: LFTs within normal limits today CRP is 18 from greater than 27 white blood cell count is 8.5 from 10.7. Imaging Imaging: Ultrasound abdomen results from 10/10/2024: IMPRESSION: 1. Sludge and/or nonshadowing stones in the gallbladder with diffuse gallbladder wall thickening, worrisome for cholecystitis. 2. Suboptimal visualization of the common bile duct. No convincing biliary ductal dilatation. Dictated by Guanako Barber MD @ 10/11/2024 11:41:32 AM Progress Note:A&P Assessment and plan (1) Contracture, hip: Status: Acute (2) Acute cholecystitis: Status: Acute Plan The patient is a 64-year-old male who presented with cholecystitis, initially managed conservatively. He appears to be improved significantly. I discussed with him follow-up as outpatient where we could discuss an elective cholecystectomy. I discussed with him that surgery may be lower risk in the elective setting and laparoscopy may be more likely which would result in faster recovery for him. He expressed excellent understanding and we discussed that if his symptoms were to recur then we should definitely plan on cholecystectomy. If symptoms do not recur then we can have a discussion as an outpatient whether not he would like to proceed with cholecystectomy. He is agreeable this plan. We will plan on discharge home today to complete a 10 day course of antibiotics.
[2024-10-13 09:00] VITALS: PULSE 91
[2024-10-13] MEDS: BACLOFEN 10 MG TABLET 5 MG PO (09:26)
[2024-10-13] MEDS: POTASSIUM BICARB 25 MEQ EFFERVESCENT TAB 50 MEQ PO (09:26)
[2024-10-13] MEDS: OMEPRAZOLE 20 MG CAPSULE DR PO (09:26)
[2024-10-13] MEDS: SODIUM CHLORIDE 0.9 % (FLUSH) 10 ML SYRINGE 5 ML IVF (09:26)
--- NOTE | 2024-10-13 11:59 | PM.DS1 ---
DS: Providers Provider Date Seen: 10/13/24 Date of admission: 10/09/24 21:53 Primary care physician: Freddy Hightower MD Admitting Clinician: Audrey Granger MD Date of Discharge: 10/13/24 DS: Diagnosis Discharge Diagnosis (1) Acute cholecystitis: Status: Acute Problem details: On admission CT shows Fluid dilation of the gallbladder with diffusely edematous appearance of the wall and pericholecystic inflammatory changes. No definite cholelithiasis. No biliary dilatation. C/w acute cholecystitis. Ultrasound showed sludge and/or nonshadowing stones in the gallbladder with diffuse gallbladder wall thickening. Common bile duct not well visualized but not obviously dilated. General surgery consult raises concern about difficulty of laparoscopic cholecystectomy given chronic hip contractures and osteoarthritis of the right hip causing additional pain and immobility. Medically managed for now. Clinically improved with IV fluids and Zosyn. Discharge on Augmentin. Will have patient follow-up with Dr. Martino next week to reassess for surgery. (2) Contracture, hip: Status: Acute Problem details: Chronic bilateral hip contractures limiting abdominal exposure and positioning for surgery. Laparoscopic cholecystectomy would be difficult (3) Sepsis: Status: Acute Problem details: Leukocytosis, WBC 23.24 with left shift 85%, tachycardic, EKG shows sinus tachycardia - repeat EKG in a.m., lactate 2.2 in ED - normalized, 0.9 on recheck Suspected source is acute cholecystitis Sepsis resolved with IV fluids and antibiotics. (4) Vomiting: Status: Acute Problem details: Resolved (5) Acute upper gastrointestinal bleeding: Status: Acute Problem details: On admission with vomiting he had report of hematemesis and evaluation showed some blood in emesis. Hemoglobin has been relatively stable and there is no ongoing evidence of bleeding. Continue PPI. (6) Acute hypokalemia: Status: Acute Problem details: Continue potassium replacement and monitoring (7) GERD (gastroesophageal reflux disease): Status: Acute Problem details: On omeprazole (8) Mononeuritis multiplex: Status: Acute Problem details: Dx 2012 Managed by PCP. Has been taking 4296-1964 mg of gabapentin per day. In hospital I reduce this to 3600 mg daily. Recommend establishing care with Neurology to further review evaluation management of his mononeuritis multiplex/neuropathy (9) Neuropathic pain: Status: Chronic Problem details: Longstanding due to mononeuritis multiplex. On gabapentin 800 mg 6 or 7 times a day. I recommend this be reduced to 3600 mg daily total, 1200 t.i.d. or 900 q.i.d. consider Neurology consult for ongoing management of neuropathic pain and mononeuritis multiplex. (10) Osteoarthritis of right hip: Status: Acute Problem details: Probable avascular necrosis. Likely this is contributing to his hip contracture as well. He does have some chronic groin pain likely related to this. (11) Hiatal hernia: Status: Acute Problem details: Moderate hiatal hernia noted on CT 10/09/24 DS: Summary Hospital Course Hospital Course: Steven Montoya is a 64 year old male past medical history significant for mononeuritis multiplex with neuropathic pain, B12 deficiency, GERD, osteoarthritis, history of alcohol dependence sober > 1 year is admitted to the medical floor from the ED for further management of sepsis in setting of acute cholecystitis. Patient is able to provide history but somewhat vague and not consistent with dates/timing. He reports abdominal pain and bloating for the past 5 days, worsening over the last 24 hours. Describes pain as crampy. Reports dark coffee-ground vomitus the past few days. History of alcohol dependence but denies alcohol use in the last year. No known history of varices. Does have a history of pancreatitis. Does not take any blood thinners/anticoagulant. Denies fevers or chills. Denies headache or dizziness. Denies chest pain or shortness of breath. Last normal bowel movement was maybe 4-5 days ago. Small stools have otherwise been without blood. No change in urination. He reports that he has not drank any alcohol in the past year. ED report states caregiver has seen beer cans in his trash. He tells me this is because he has visitors who throw their cans in there. Lives alone. Has a caregiver every other week. Independent with ADLs. Nonambulatory. Wheelchair-bound secondary to his mononeuritis. Is able to stand and pivot. Denies history of anesthesia complications, personal/family bleeding disorders. Nonsmoker. PCP is Dr. Hightower. Patient is on gabapentin 800 mg 6 or 7 times a day. I explained that this was above the recommended maximum dose of gabapentin. He is using this for pain associated with his neuropathy/vasculitis with mononeuritis multiplex. At the time of admission CT scan showed findings consistent with acute cholecystitis. Patient has received fluid resuscitation and Zosyn. Notably the patient is unable to extend at the hips. Both hips have contracture at about 90? of flexion. 10/10/2024: Patient reports feeling much better today. In consultation with surgery there is concerned that laparoscopic cholecystectomy would be very difficult with his hip contractures. 10/11/2024: Patient reports generally feeling better today. No significant abdominal pain. He reports being hungry. Low-grade fever of 100.3 yesterday afternoon but not since then. Increase in bilirubin today. I discussed with Dr. Martino and then with General surgery at [facility]. They recommended continued medical management with outpatient surgical follow-up unless the patient does not improve to be able to be discharged or clinically deteriorates. They recommend a HIDA scan to further evaluate if clinical concern. 10/12/2024: Patient continues to report feeling better. He is hungry and would like to eat. He has had full liquids yesterday without any problems. Specifically denies pain, fever, nausea. 10/13/2024: Patient reports feeling fine. He is tolerating a regular diet. He is anxious to go home. No other concerns today. Status at Discharge Functional status at discharge: wheelchair bound Overall status at discharge: patient is progressing back to baseline Time Spent with Patient Time attestation: Total time spent providing and/or coordinating discharge services: 45 minutes Exam Narrative: Exam Narrative: He is alert and appears in no distress. Breathing is unlabored. Abdomen with active bowel sounds. Abdomen is soft without tenderness or mass. Extremities without significant edema. Const: Vital Signs, click to edit/add: Vital Signs - 24 hr 10/12/24 15:00 10/12/24 15:00 10/12/24 15:00 Temperature 98.0 F Pulse Rate 91 Pulse Rate [Pulse Oximeter] 86 86 Respiratory Rate 16 16 Blood Pressure [Ri ght Arm] 116/63 Pulse Oximetry 96 Oxygen Delivery Me thod Room Air 10/12/24 18:18 10/12/24 23:00 10/12/24 23:00 Temperature 98.1 F Pulse Rate 78 Pulse Rate [Pulse Oximeter] 86 85 Respiratory Rate 16 16 Blood Pressure [Ri ght Arm] 127/75 Pulse Oximetry 96 Oxygen Delivery Me thod Room Air 10/13/24 02:58 10/13/24 07:00 Temperature 97.7 F 98.0 F Pulse Rate Pulse Rate [Pulse Oximeter] 85 82 Respiratory Rate 16 18 Blood Pressure [Ri ght Arm] 117/76 120/83 Pulse Oximetry 92 99 Oxygen Delivery Me thod Room Air Room Air Documenting provider has reviewed patient's vital signs: yes DS: Data Data Completed and Pending Labs on day of discharge: Labs from last 24 hours 10/13/24 05:39 WBC 8.35 RBC 3.42 L Hgb 10.7 L Hct 31.3 L MCV 92 MCH 31 MCHC 34 Plt Count 185 Sodium 137 Potassium 3.3 L Chloride 106 Carbon Dioxide 26 Anion Gap 5 L BUN 8 Creatinine 0.8 Estimated Creat Clear 89.05 Estimated GFR 100 Glucose 96 Calcium 7.9 L Total Bilirubin 1.2 Direct Bilirubin 0.4 AST 16 ALT 11 Alkaline Phosphatase 71 C-Reactive Protein 18.7 H Total Protein 6.1 Albumin 3.0 L Preliminary micro results at discharge 10/09/24 22:00 Blood Culture - Preliminary Blood NO GROWTH AFTER 72 HOURS 10/09/24 22:00 Blood Culture - Preliminary Blood NO GROWTH AFTER 72 HOURS Discharge Plan Discharge Disposition: Home, Self-Care Date of Admission: 10/09/24 21:53 Attending Provider on Discharge: Giuseppe Moreno Consulting Providers: June Ricci; Mandi العراقي; Heaven Martino Primary Care Provider: Freddy Hightower Condition: Improved Anticipated Discharge Date/Time: 10/13/24 10:55 Discharge Medications: New amoxicillin-pot clavulanate 875-125 mg tablet 1 tab PO BID Qty: 14 0RF Continued omeprazole 20 mg capsule,delayed release(DR/EC) 20 mg PO QDAY Qty: 90 3RF gabapentin 800 mg tablet See Rx Instructions PO .COMPLEX Qty: 600 3RF Rx Instructions: 800 mg 6-7 times a day orally; Discharge Orders: Discharge Order (Routine); Ordered 10/13/24 Ordered By: Giuseppe Moreno Patient Education: Amoxicillin (By mouth), Gallstones (ED), General Anesthesia (DC), Post-Operative Instructions: Laparoscopic Cholecystectomy Activity Level: Up with assist Discharge Diet: Other Diet Detail: Low Fat Follow Up Appointments: Heaven Martino MD [Staff Physician, General Surgery] - 10/21/24 10:15 am Referral Note: follow up in 1 week. Check potassium in one week. Freddy Hightower MD [Primary Care Provider, Family Practice] Forms: [employer] Info Instructions
--- NOTE | 2024-10-13 14:53 | PC.NURSE ---
The patient discharged home via non emergent EMS. No reports of pain in his abm or N/V. Tolerating a regular diet with no issues. The patient has anna appointment made with general surgery. All discharge instructions were given and reviewed with the patient. Stephanie CONNELL BSN
--- NOTE | 2024-10-13 15:48 | PC.SOCIAL ---
Addendum entered by RICHARD Mei 10/14/24 09:19: Discharge planning: [facility] can accept the pt for PT/OT home care and will reach out to him today or tomorrow to set-up the intake appointment. Social work to follow-up as needed. Original Note: Discharge planning: Pt is being recommended for home care PT/OT. A referral was faxed to [facility], fax number #[phone] and they are unable to accept the pt because they are booking more than two weeks out for pt's in the [facility]. child welfare social worker then faxed a referral to [facility] at fax number #[phone], worker will wait to hear back from [facility] on if they can take the pt for PT/OT home care services. Pt also requested to return home today via non-emergent EMS. After consulting with the charge nurse, it was determined that the pt's insurance would not cover non-emergent EMS transportation and the pt would need to pay out of pocket for the transport. child welfare social worker calculated that the cost would be $183.00([id number]= [phone]). Pt was fine with this amount going on his hospital bill and willingly signed the EMS non-emergent wheelchair transportation form. child welfare social worker gave the form to the charge nurse on duty. Social work to follow-up as needed.
== END 2024-10-13 14:29 | disposition home or self-care (01) | DRG 872 ==
LOC: ED 20:55 → MEDSURG 21:51
PROVIDERS: Family Medicine; Admitting Provider Physician Assistant; Emergency Provider Family Medicine; PCP Family Medicine; Visit Provider Family Medicine
DX: A41.9 Sepsis, unspecified organism (principal); K81.0 Acute cholecystitis; K92.0 Hematemesis; G82.20 Paraplegia, unspecified; Z99.3 Dependence on wheelchair; K21.9 Gastro-esophageal reflux disease without esophagitis; G58.7 Mononeuritis multiplex; E87.6 Hypokalemia; K44.9 Diaphragmatic hernia without obstruction or gangrene; F10.21 Alcohol dependence, in remission; E53.8 Deficiency of other specified B group vitamins; M24.552 Contracture, left hip; M24.551 Contracture, right hip; G62.9 Polyneuropathy, unspecified
CPT/HCPCS: 36415; 74177; 76705; 80048; 80076; 81001; 82077; 82150; 83605; 83690; 83735; 83986; 84484; 85018; 85025; 85027; 85610; 85730; 86140; 86850; 86900; 86901; 87040; 87086; 93005; 94761; 99285; A9270; J0780; J1171; J2405; J2470; J2543; J3475; J3480; J7030; J7050; J7120; Q9967

== ENCOUNTER 2024-10-13 14:32 | Outpatient (CLI) | payer MEDICARE, SELFPAY | END 2024-10-13 14:33 | disposition home or self-care (01) | PROVIDERS: PCP Family Medicine; Visit Provider Emergency Medicine Emergency Medical Services | DX: R53.1 Weakness (principal) | CPT/HCPCS: A0425; A0428 ==

== ENCOUNTER 2024-10-21 09:50 | Emergency (ER) | payer MEDICARE, SELFPAY ==
--- NOTE | 2024-10-21 10:08 | ED.NURSE ---
Per [facility] and patient, he had a clinic appointment and was unable to find a ride. Patient had no complaint and did not want to see an ED provider. He signed declanation and was brought to clinic. Message was left with social work explaining situation.
--- NOTE | 2024-10-21 17:19 | PC.SOCIAL ---
Social work: Received call from nurse requesting social work assistance for transportation home after clinic visit. Met with pt in clinic regarding this. Pt stated he lives alone in his own home in [place] which has two steps to enter and 8 step up to the split level he lives in. Pt states he called an ambulance this morning for a ride to his clinic appointment and has no way to get home. Pt states he has a daughter in [place] and a daughter in [place] who come visit occasionally. He shared that his dtrs assist him in getting to his annual medical appointments when they are visiting. Pt states he has people who he can call for assistance if needed, but no one who can provide transport to and from medical appointments. Pt states he has called [employer] companies but they want to pick him up at the curb and drop him off at the curb. Pt wants to have transportation from the floor he lives on to appointments without having to go down the stairs. The only agencies able to provide this level of transport is EMS. When questioned on the safety of living on a floor that requires him to go down the stairs, pt states If there was a fire I could get out. That is not an issue. Pt stated he is able to bump down the stairs on his bottom if needed, but he can't get up the stairs by himself. Pt states he can stand and pivot using his walker and that he is safe at home alone and is not interested in changing his living situation. Offered to share information on short term assisted living options with transportation which would be used until pt finished his appointments and surgery and is able to return home. Pt states he is not interested in this. Offered for social and human services assistant to contact pt's daughters to share what the options and concerns are regarding lack of transportation to appointments. Pt declined to give permission for social and human services assistant to call his daughters. Pt states he called the [place] police for advice on transport to his medical appointment and they suggested the non-emergency ambulance which he took to the hospital today. Pt states he is willing to pay privately for EMS transportation. Pt states that should be an option as he had taken EMS home from the hospital at discharge last week. Shared with pt that EMS transport for hospital discharge is different than to and from clinic appointments. Pt requested social and human services assistant contact EMS to request private pay transportation home today. Called and arranged for EMS transport home from the clinic today. Pt signed private pay form indicating he is aware and agrees to pay privately for this transport. Pt was appreciative of support provided.
== END 2024-10-21 10:29 | disposition left against medical advice (07) ==
LOC: ED 09:59
PROVIDERS: PCP Family Medicine
DX: Z53.21 Procedure and treatment not carried out due to patient leaving prior to being seen by health care provider (principal)

== ENCOUNTER 2024-10-21 13:46 | Outpatient (CLI) | payer MEDICARE, SELFPAY | END 2024-10-21 13:47 | disposition home or self-care (01) | LOC: AMB 10-22 11:15 | PROVIDERS: PCP Family Medicine; Visit Provider Family Medicine | DX: M79.609 Pain in unspecified limb (principal); R53.1 Weakness; Z99.3 Dependence on wheelchair | CPT/HCPCS: A0425; A0428 ==

== ENCOUNTER 2024-11-10 10:29 | Outpatient (CLI) | payer MEDICARE, SELFPAY | END 2024-11-10 11:59 | disposition home or self-care (01) | PROVIDERS: PCP Family Medicine; Visit Provider Family Medicine | DX: I10 Essential (primary) hypertension (principal) | CPT/HCPCS: A0425; A0429 ==

== ENCOUNTER 2024-11-10 11:10 | Emergency (ER) | payer MEDICARE, SELFPAY ==
[2024-11-10 11:15] VITALS: BP 161/116; PULSE 83; RESP 18; TEMP 36.8; O2SAT 99
== END 2024-11-10 11:31 | disposition home or self-care (01) ==
LOC: ED 11:23
PROVIDERS: Emergency Provider Family Medicine; PCP Family Medicine
DX: Z53.21 Procedure and treatment not carried out due to patient leaving prior to being seen by health care provider (principal)

== ENCOUNTER 2024-11-11 08:48 | Inpatient (IN) | payer MEDICARE, SELFPAY ==
[2024-11-10] VITALS (21 sets, daily range): BP systolic 126–162; BP diastolic 70–108; PULSE 63–103; RESP 12–20; TEMP 36.1–36.8; O2SAT 94–98; BMI 26.3
[2024-11-10] MEDS: LACTATED RINGERS 1000 ML 1,000 ML 100 ML IV ×2 (11:00→13:18)
[2024-11-10] MEDS: SODIUM CHLORIDE 0.9 % (FLUSH) 10 ML SYRINGE IVF (12:01)
--- NOTE | 2024-11-10 12:09 | W.PM.H&PU ---
History & Physical Update History & Physical Update H&P Reviewed and patient assessed: No changes noted
--- NOTE | 2024-11-10 12:19 | P.GSOP_ITS ---
Operative Note Date of procedure: 11/10/24 Pre-op diagnosis: Recent acute cholecystitis Post-op diagnosis: Same Type of Procedure: 1. Laparoscopic cholecystectomy, 2. 22 modifier for difficulty secondary to inflammation and adhesion 3. Intraoperative cholangiogram Indications: The patient is a 64-year-old male who proximally 1 month ago presented to the hospital with a septic type picture. He was found to have a distended gallbladder containing sludge. The patient has contractures of his lower extremities which would make positioning for laparoscopic surgery difficult particularly in the setting of severe cholecystitis which she appeared to have. Therefore I recommended attempting to manage his cholecystitis with antibiotics and/or tube drainage. He improved on antibiotics and was able to discharge home. At follow-up, he remained asymptomatic. After discussion of watchful waiting versus interval cholecystectomy, which would hopefully be easier once the acute inflammation resolved, he elected to proceed with cholecystectomy to prevent future episodes. Procedure Description: After discussing the risks and benefits of the procedure, the patient signed informed consent.? The operative site was marked and the patient was brought to the operating room and placed on the operating table in supine position.? Care was taken to pad the patient's pressure points.? Because he is unable to extend his legs, he was placed on a pink pad to support him during positioning. Dilip ws were placed under his knees. The patient was then intubated by anesthesia.?? The operative site was then prepped and draped in the usual sterile fashion.? A time-out was then performed. Entrance to the abdomen was gained via a 5 mm Visiport in the left upper quadrant. The abdomen was insufflated and briefly surveyed for signs of injury. There was none. A 10 mm umbilical port was placed as well as 2 working ports along the right costal margin, all under direct vision. The patient was then placed in reverse Trendelenburg position with the right side up. The gallbladder fundus was grasped and retracted cephalad. There were omental adhesions to the gallbladder and liver. These were taken down with a combination of careful blunt dissection as well as cautery. The duodenum was also adherent to the gallbladder as I dissected inferiorly. This was carefully taken down. I was able to continue to dissect the adherent fatty tissue of the retroperitoneum away from the gallbladder until the infundibulum was apparent. I grasped this and then worked to dissect the cystic duct and artery. Unfortunately, the gallbladder was very smart which made dissection difficult. It was difficult to pick through the thickened tissue. The rind of the gallbladder was quite sick, however I was able to dissect through this using cautery. Using a combination of [place] dissector, hook cautery and the suction stack supervisor I was able to dissect out what appeared to be the duct and artery in their usual location. I next turned my attention to dissecting posteriorly to achieve the critical view. Again, the gallbladder was thickened and the tissue around this with difficult to dissect. I dissected into the gallbladder as the plane between the gallbladder and liver bed was not clear. The gallbladder did contain stones and sludge. I began my dissection higher up on the liver bed and took this down toward the area of the duct and artery, finding a new plane which was better defined, however still quite thickened. Carefully, I was eventually able to dissect behind the duct and artery, creating a window. The gallbladder was taken off the cystic plate for quite some distance. However, as I dissected out the duct and artery, well the artery was noted to be present in its usual location just on the medial aspect of the duct, there was another structure posterior to the cystic duct. The cystic duct was as mentioned enlarged. This was however close to the gallbladder neck. The fatty tissue around the distal cystic duct was difficult to dissect, therefore I kept my dissection close to the gallbladder where the duct was enlarged. There was a 3rd structure that appeared to be coming from the cystic duct more distally. Initially this appeared as though it could be a small blood vessel or inflammatory rind, however it went from the more distal cystic duct back into the gallbladder. Because I could not appropriately identify this, I elected to obtain a cholangiogram to define the biliary anatomy prior to division of any structures. A cholangiocatheter was obtained. A jean was created in the gallbladder just at the neck and the catheter was threaded in. A clamp was placed across the gallbladder neck and the leak test was performed. This was negative. Fluoroscopy was then brought into the field. Contrast was then injected. There was brisk filling of the cystic duct, common bile duct, right and left hepatic ducts and no obvious filling defect, however the duodenum did not fill. Of note, the smaller structure that was going from the cystic duct to the gallbla dder did not fill and was not part of the biliary system. Glucagon was then administered and after 5 minutes the cholangiogram was repeated. Again no filling defect was obviously seen, however the duodenum again did not fill with contrast. The cholangiocatheter was then removed. The smaller structure posterior to the cystic duct that was not contiguous with the biliary tree on cholangiogram was clipped with 1 clip proximal 1 clip distal. Once it was clipped I did not note a little lumen. It may have been part of the inflammatory rind. I then transected the cystic duct at the neck of the gallbladder and used both an 0 PDS and a 0 Vicryl endoloop to ligate the cystic duct stump. The gallbladder was then removed from the liver bed using cautery. Because the gallbladder was so thickened and adherent to the liver bed, portion of the gallbladder wall remain behind. This was cauterized to ablate the mucosa. The gallbladder was then removed from the abdomen using an Endo-Catch bag. The abdomen was irrigated and any spilled bile was suctioned from the abdomen. Hemostasis appeared adequate at the end the case, however, there was a fair amount of oozing during the case from the raw omentum as well as liver bed and therefore Surgicel was placed on the liver bed. The ports were removed and the abdomen was then desufflated. The umbilical port fascia was closed with 0 Vicryl. The skin was closed with absorbable subcuticular suture. Sterile dressings were then applied. Instrument sponge and needle counts were correct at the end of the case. The patient was then woken and transferred to the PACU in stable condition. ? The patient tolerated the procedure well. Findings: 1. Gallbladder with thickened rind and adhesions from prior cholecystitis 2. Gallstones 3. Cholangiogram without biliary anatomy abnormality or filling defect, however no filling of duodenum despite glucagon administration. Anesthesia: GETA Surgeon: Heaven Martino MD Estimated blood loss (mL): 100 Condition: stable Disposition: PACU
--- NOTE | 2024-11-10 14:05 | P.ANES_ITS ---
Anesthesia Charges Start Date/Time Anesthesia Start Date: 11/10/24 Anesthesia Start Time: 12:29 Stop Date/Time Anesthesia Stop Date: 11/10/24 Anesthesia Stop Time: 16:01 Coding CPT Codes CPT Codes: ANESTH SURG UPPER ABDOMEN - 19175 ([id number]) P3 - PATIENT W/SEVERE SYS DISEASE, QK - TEST ENGINEERING INTERN 2-4 CNCRNT ANES PROC, QX - RESEARCH ELECTRICIAN SVC W/ MD MED DIRECTION
--- NOTE | 2024-11-10 14:05 | W.ANESCHARGE ---
Anesthesia Charges Start Date/Time Anesthesia Start Date: 11/10/24 Anesthesia Start Time: 12:29 Stop Date/Time Anesthesia Stop Date: 11/10/24 Anesthesia Stop Time: 16:01 Coding CPT Codes CPT Codes: ANESTH SURG UPPER ABDOMEN - 67158 ([id number]) P3 - PATIENT W/SEVERE SYS DISEASE, QK - SUPERVISOR EDGING 2-4 CNCRNT ANES PROC, QX - STEWARD/STEWARDESS CHIEF CARGO VESSEL SVC W/ MD MED DIRECTION
--- NOTE | 2024-11-10 14:30 | CRLHL7_ITS ---
For Patients: As a result of the Century Cures Act, medical imaging exams and procedure reports are released immediately into your electronic medical record. You may view this report before your referring provider. If you have questions, please contact your health care provider. INDICATION : Laparoscopic cholecystectomy. TECHNIQUE : Intraoperative cholangiogram. Contrast injected via gallbladder neck and cystic duct. FINDINGS : Fluoroscopy time was 42 seconds. 4 images were obtained. IMPRESSION : Normal caliber intra and extrahepatic ducts. No filling defects. Contrast seen within the duodenum. Normal intraoperative cholangiogram. Dictated by Freddy Whaley MD @ 11/11/2024 11:20:20 AM (Electronically Signed)
[2024-11-10] MEDS: BUPIVACAINE 0.25% 30 ML INJECTION (15:30)
--- NOTE | 2024-11-10 16:01 | P.ANES_ITS ---
Anesthesia Charges Start Date/Time Anesthesia Start Date: 11/10/24 Anesthesia Start Time: 12:29 Stop Date/Time Anesthesia Stop Date: 11/10/24 Anesthesia Stop Time: 16:01 Coding CPT Codes CPT Codes: ANESTH SURG UPPER ABDOMEN - 73060 ([id number]) P3 - PATIENT W/SEVERE SYS DISEASE, QK - PODIATRIC MEDICINE DOCTOR 2-4 CNCRNT ANES PROC, QX - FAST BRIM POUNCER SVC W/ MD MED DIRECTION
--- NOTE | 2024-11-10 16:01 | W.ANESCHARGE ---
Anesthesia Charges Start Date/Time Anesthesia Start Date: 11/10/24 Anesthesia Start Time: 12:29 Stop Date/Time Anesthesia Stop Date: 11/10/24 Anesthesia Stop Time: 16:01 Coding CPT Codes CPT Codes: ANESTH SURG UPPER ABDOMEN - 22837 ([id number]) P3 - PATIENT W/SEVERE SYS DISEASE, QK - DEVELOPMENT EXPERT 2-4 CNCRNT ANES PROC, QX - BURGLAR ALARM SUPERINTENDENT SVC W/ MD MED DIRECTION
[2024-11-10] MEDS: LACTATED RINGERS 1000 ML 1,000 ML 125 ML IV (17:04)
[2024-11-10] MEDS: ONDANSETRON 2 MG/ML inj IVP ×2 (17:14→20:18)
--- NOTE | 2024-11-10 17:33 | P.IMCN_ITS ---
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 Martino. Intraoperative cholangiogram was obtained: without biliary anatomy abnormality or filling defect, however no filling of duodenum despite glucagon administration. Postoperatively he is doing well. Denies pain at present. Asks about restarting his home dose of gabapentin. Review of Systems Status of ROS: Reports: 10 or more systems reviewed and unremarkable except as noted in History and below [facility] Medical History (Updated 11/10/24 @ 20:59 by Nidia Benedict MD) Tremor ?R25.1 - Tremor, unspecified (ICD-10) Constipation ?K59.00 - Constipation, unspecified (ICD-10) Acute cholecystitis ?K81.0 - Acute cholecystitis (ICD-10) Acute hypokalemia ?E87.6 - Hypokalemia (ICD-10) Contracture, hip ?M24.559 - Contracture, unspecified hip (ICD-10) Uses wheelchair ?Z99.3 - Dependence on wheelchair (ICD-10) Hiatal hernia ?K44.9 - Diaphragmatic hernia without obstruction or gangrene (ICD-10) Osteoarthritis of right hip ?M16.11 - Unilateral primary osteoarthritis, right hip (ICD-10) B12 deficiency ?E53.8 - Deficiency of other specified B group vitamins (ICD-10) Alcohol abuse ?F10.10 - Alcohol abuse, uncomplicated (ICD-10) Neuropathic pain ?M79.2 - Neuralgia and neuritis, unspecified (ICD-10) 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 - Mononeuritis multiplex (ICD-10) GERD (gastroesophageal reflux disease) ?K21.9 - Gastro-esophageal reflux disease without esophagitis (ICD-10) Surgical History (Updated 11/10/24 @ 20:48 by Nidia Benedict MD) S/P laparoscopic cholecystectomy (11/10/24) ?Z90.49 - Acquired absence of other specified parts of digestive tract (ICD- 10) S/P left inguinal hernia repair ?Z98.890 - Other specified postprocedural states (ICD-10) ?Z87.19 - Personal history of other diseases of the digestive system (ICD-10) Social History (Updated 11/10/24 @ 20:40 by Nidia Benedict MD) Narrative: disabled due to neuropathy, hip contractures. Denies tobacco, alcohol or recreational drug use. What is your current living situation?: I presently have a place to live Problems where you live: no known problems Problems where you live details: n/a In the past 12 months, utilities in danger of being shut off: no In past 12 months, lack of transportation kept you from medical appts, meetings, work, or getting things needed for daily living: no In the past 12 mos, have been you worried that your food would run out before you had money to buy more?: never true In the past 12 mos, the food you bought just didn't last and you didn't have money to buy more?: never true Smoking Status: Never smoker Do you use any of these nicotine containing products: Smokeless Tobacco Second hand tobacco smoke exposure: No How often do you have a drink containing alcohol: never AUDIT-C Alcohol total score: 0 Non-prescribed substance use: denies use Caffeine: Yes (mtn dew 2-3) How often does anyone, including family, friends and others, physically hurt you : never How often does anyone, including family, friends and others, insult or talk down to you: never How often does anyone, including family, friends and others, threaten you with harm: never How often does anyone, including family, friends and others, scream or curse at you: never service: No Meds Home Medications and Allergies Home Medications ?Medication ?Instructions ?Recorded ?Confirmed ?Type gabapentin 800 mg tablet See Rx Instructions PO .COMP RUSSELL 10/03/24 11/10/24 Rx #600 tabs omeprazole 20 mg capsule,delayed 20 mg PO QDAY #90 cap s 10/03/24 11/10/24 Rx release hydrocodone 5 mg-acetaminophen 325 1 tab PO Q6H PRN Pa in #15 tabs 11/10/24 Rx mg tablet Allergies Allergy/AdvReac Type Severity Reaction Status Date / Time No Known Allergies Allergy Unknown Unknown Verified 11/10/24 11:35 Exam Narrative: Exam Narrative: General: No acute distress. Awake alert oriented x3. HEENT: Normocephalic atraumatic, pupils equally round and reactive to light and accommodation. Oropharynx clear. Mucous membranes are moist. No cervical lymphadenopathy, thyromegaly or carotid bruits. No JVD. Cardiovascular: Regular rate and rhythm. No murmurs, gallops, or rubs. Chest: No increased work of breathing. Clear to auscultation bilaterally. No crackles or wheezes. Abdomen: Postsurgical abdomen, laparoscopic surgical wounds are clean, dry, and intact. Extremities: Both hips are flexed at a 90 degree angle and he is unable to extend them. No edema, no cyanosis or clubbing. Skin: No jaundice, no pallor, no rashes on visible skin. Const: Vital Signs, click to edit/add: Vital Signs - 24 hr 11/10/24 11:59 11/10/24 15:56 11/10/24 16:00 Temperature 98.3 F 97.4 F L Pulse Rate 74 84 74 Respiratory Rate 16 14 16 Blood Pressure 135/105 H 155/102 H 158/97 H Pulse Oximetry 98 97 95 Oxygen Delivery Me thod Room Air Room Air 11/10/24 16:05 11/10/24 16:10 11/10/24 16:15 Temperature Pulse Rate 75 70 63 Respiratory Rate 14 12 13 Blood Pressure 156/106 H 157/102 H 159/101 H Pulse Oximetry 95 94 95 Oxygen Delivery Me thod 11/10/24 16:20 11/10/24 16:25 11/10/24 16:30 Temperature 98.1 F 97.1 F L Pulse Rate 73 76 66 Respiratory Rate 12 14 16 Blood Pressure 151/101 H 154/96 H 139/86 Pulse Oximetry 95 96 97 Oxygen Delivery Me thod Room Air Assessment and Plan Assessment and plan (1) S/P laparoscopic cholecystectomy: Problem comment: - 11/10/24 Dr. Martino - routine post op cares - Rechecking CBC, BMP, lipase, liver panel in am. 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 Status: Chronic (5) Neuropathic pain: Problem comment: Longstanding due to mononeuritis multiplex. Has been taking 3600-3328 mg of gabapentin per day. This was reduced during previous hospitalization to 3600 mg daily, and it was recommended he establish care with Neurology to further review evaluation management of his mononeuritis multiplex/neuropathy. Upon discharge, he resumed taking 4800 mg. I have ordered his home dosing regimen here. Again recommended outpatient neurology for review and management of mononeuritis multiplex and neuropathy. Status: Chronic
[2024-11-10] MEDS: GABAPENTIN 600 MG TABLET PO (18:26)
[2024-11-10] MEDS: GABAPENTIN 100 MG CAPSULE 200 MG PO (18:26)
--- NOTE | 2024-11-10 19:27 | PC.NURSE ---
End of shift: Patient pleasant and cooperative, A&O. VSS, afebrile. Dressings to abdomen C/D/I. Tolerating ice chips and water. Patient reports nausea after surgery, managed with PRN medication, see MAR. Patient reports pain in his legs from his neuropathy, managed with PRN medication, see MAR. ?
[2024-11-10] MEDS: PROCHLORPERAZINE 5 MG/ML VIAL IV (21:00)
[2024-11-11] VITALS (9 sets, daily range): BP systolic 114–152; BP diastolic 80–105; PULSE 74–116; RESP 16–20; TEMP 36.5–37.4; O2SAT 92–95
--- NOTE | 2024-11-11 06:29 | PC.NURSE ---
Pt alert and oriented x3. Afebrile. Pt denies pain, SOB, chest pain, and vomiting. Pt reports nausea x2 with movement of standing to sitting, managed with pt laying back down, PRN antiemetic medications offered pt refused stating it's better than before when I back from surgery and it goes away once I lie back down. Towards end of shift pt was able to get up and sit down without nausea.?Pt is up A1 with wheel chair, voiding, and tolerating a clear liquid diet. ?
[2024-11-11 06:41] LABS: Hematocrit 37.7 % (37.0-53.0); Hemoglobin* 12.7 gm/dL (13.5-17.5); Immature Granulocytes Pct Auto 0.4 %; Mean Corpuscular HGB Conc 34 gm/dL (32-36); Mean Corpuscular Hemoglobin 31 pg (26-34); Mean Corpuscular Volume 91 fL (80-100); RDW Coefficient of Variation % 13.4 % (11.5-15.5); Red Blood Count 4.15 m/uL (4.30-5.90); White Blood Count* 12.36 K/uL (4.50-11.00)
[2024-11-11 06:53] LABS: Immature Granulocytes Abs Auto 0.00 K/uL (0.00-0.30); Lymphocytes Absolute Auto 0.60 K/uL (0.90-2.90); Slide Review Reflex No
[2024-11-11 06:56] LABS: Albumin* 3.5 g/dL (3.3-5.0); Chloride* 102 mmol/L (96-114)
[2024-11-11 06:57] LABS: Potassium* 3.6 mmol/L (3.6-5.1); Sodium* 134 mmol/L (135-149)
[2024-11-11 06:59] LABS: Alanine Aminotransferase* 23 U/L (4-50); Anion Gap 7 mEq/L (7-15); Aspartate Amino Transferase* 34 U/L (12-35); Blood Urea Nitrogen* 9 mg/dL (7-30); Carbon Dioxide* 25 mmol/L (20-32); Creatinine* 1.0 mg/dL (0.5-1.5); Est. Creatinine Clearance* 89.05; Estimated Glomerular Filt Rate 85 ml/min; Total Protein* 6.6 g/dL (6.0-8.3)
[2024-11-11 07:00] LABS: Alkaline Phosphatase* 86 U/L (40-150); Bilirubin Direct* 0.2 mg/dL (0.0-0.5); Bilirubin Total* 1.9 mg/dL (0.1-1.5); Calcium* 8.5 mg/dL (8.4-10.6); Glucose* 129 mg/dL (60-115)
[2024-11-11] MEDS: OMEPRAZOLE 20 MG CAPSULE DR PO ×3 (08:01→20:33)
[2024-11-11] MEDS: ONDANSETRON 2 MG/ML inj IVP ×2 (08:19→18:02)
--- NOTE | 2024-11-11 08:50 | PM.GSPN ---
Subjective Subjective Date Seen: 11/11/24 Interval history: Steven has minimal pain today but he did vomit. This happened when he sat up quickly to go to the bathroom. He vomited last evening and then again this morning. He felt dizzy when it happened. Exam Narrative: Exam Narrative: General: No acute distress Respiratory Breathing nonlabored on room air Abdomen: Soft, nontender. Incisions are clean and dry. Const: Vital Signs, click to edit/add: Vital Signs - 24 hr 11/10/24 11:59 11/10/24 15:56 11/10/24 16:00 Temperature 98.3 F 97.4 F L Pulse Rate 74 84 74 Pulse Rate [Pulse Oximeter] Respiratory Rate 16 14 16 Blood Pressure 135/105 H 155/102 H 158/97 H Blood Pressure [Ri ght Arm] Pulse Oximetry 98 97 95 Oxygen Delivery Nh thod Room Air Room Air 11/10/24 16:05 11/10/24 16:10 11/10/24 16:15 Temperature Pulse Rate 75 70 63 Pulse Rate [Pulse Oximeter] Respiratory Rate 14 12 13 Blood Pressure 156/106 H 157/102 H 159/101 H Blood Pressure [Ri ght Arm] Pulse Oximetry 95 94 95 Oxygen Delivery Me thod 11/10/24 16:20 11/10/24 16:25 11/10/24 16:30 Temperature 98.1 F 97.1 F L Pulse Rate 73 76 66 Pulse Rate [Pulse Oximeter] Respiratory Rate 12 14 16 Blood Pressure 151/101 H 154/96 H 139/86 Blood Pressure [Ri ght Arm] Pulse Oximetry 95 96 97 Oxygen Delivery Nh thod Room Air 11/10/24 16:45 11/10/24 17:00 11/10/24 17:00 Temperature 97.0 F L 97.3 F L 97.3 F L Pulse Rate 67 65 Pulse Rate [Pulse Oximeter] 66 Respiratory Rate 16 16 Blood Pressure 136/90 H 129/87 Blood Pressure [Ri ght Arm] 129/87 Pulse Oximetry 96 97 [facility] 11/10/24 17:15 11/10/24 17:30 11/10/24 18:00 Temperature 97.4 F L 97.4 F L 97.4 F L Pulse Rate 66 66 64 Pulse Rate [Pulse Oximeter] Respiratory Rate 16 16 16 Blood Pressure 135/85 126/70 127/71 Blood Pressure [Ri ght Arm] Pulse Oximetry 95 94 94 Oxygen Delivery Me thod Room Air Room Air Room Air 11/10/24 18:30 11/10/24 19:43 11/10/24 20:43 Temperature 97.8 F 97.8 F 97.6 F Pulse Rate 67 97 95 Pulse Rate [Pulse Oximeter] Respiratory Rate 16 20 20 Blood Pressure 128/78 162/105 H 150/108 H Blood Pressure [Ri ght Arm] Pulse Oximetry 95 96 95 Oxygen Delivery Me thod Room Air Room Air Room Air 11/10/24 21:43 11/10/24 22:43 11/10/24 22:53 Temperature 98.1 F 98.1 F 98.1 F Pulse Rate 94 103 H Pulse Rate [Pulse Oximeter] 103 H Respiratory Rate 18 18 18 Blood Pressure 128/75 147/98 H Blood Pressure [Ri ght Arm] 147/98 H Pulse Oximetry 94 96 96 Oxygen Delivery Me thod Room Air Room Air Room Air 11/10/24 23:00 11/11/24 01:54 Temperature 97.7 F Pulse Rate Pulse Rate [Pulse Oximeter] 104 H Respiratory Rate 16 16 Blood Pressure Blood Pressure [Ri ght Arm] 140/90 H Pulse Oximetry 96 95 Oxygen Delivery Me thod Room Air Room Air Labs/Imaging Labs Labs: White blood cell count was 12 today. Hemoglobin stable at 12 Total bilirubin 1.9 otherwise remainder of LFTs normal. Lipase was normal. Mildly low sodium at 1:34 a.m. otherwise electrolytes within normal limits. Progress Note:A&P Assessment and plan (1) S/P laparoscopic cholecystectomy: Status: Acute (2) Elevated bilirubin: Status: Acute Plan The patient is a 64-year-old male who is postop day 1 status post laparoscopic cholecystectomy for recent severe cholecystitis. Cholangiogram was performed intraoperatively to delineate biliary anatomy. There was no filling of the duodenum without clear filling defect. Today LFTs do not show an obstructive pattern, however total bilirubin is elevated. We will consider an MRCP given the non filling of the bile duct, however his leg contractures may not make this possible. I have asked the copier and printer field technician to come and evaluate him to see if MRI will be possible for him. If not we will plan on rechecking labs. Since he has had ongoing vomiting and also has no one to help him at home with significant mobility issues, would recommend keeping him inpatient today. Will give some IV fluids this morning.
--- NOTE | 2024-11-11 11:09 | PC.SOCIAL ---
member services representative consult: BREANN met with patient to discuss transportation and support for home. Patient states that he needs transportation home and is aware of the cost. Patient reports that he doesn't have concerns for home at this time. Patient explains that he has someone come every two weeks and she does his laundry and brings him groceries. SW to assist with transportation form on 11/12.
--- NOTE | 2024-11-11 11:58 | PM.IMPN1 ---
Assessment and Plan Assessment and plan (1) S/P laparoscopic cholecystectomy: Problem comment: - 11/10/24 Dr. Martino - routine post op cares - Rechecking CBC, BMP, lipase, liver panel in am. Status: Acute (2) Postoperative vomiting: Problem comment: Immediately postoperatively I suspect general anesthesia may have contributed to his vomiting. 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 No definite signs or symptoms of an operative complication. MRI pending. I recommend to the patient that he sit up for eating and drinking. Since his symptoms are somewhat orthostatic I would recommend he be sitting up for a few minutes prior to eating or drinking and remain sitting for at least a 1/2 hour after eating or drinking Status: Acute (3) Elevated bilirubin: Problem comment: Total bili 1.9. Direct bili 0.2. Trend Status: Acute Plan Due to postoperative vomiting will admit to hospital for monitoring of p.o. intake, watching for complications of surgery, managing fluid and electrolytes. Total Time Spent Total Time Spent: Total time spent today is 55 minutes in coordination of care and discussing with patient and other providers ongoing evaluation management of postop care, recurrent vomiting, other disabilities. Subjective Date Seen: 11/11/24 Interval history: 64-year-old male admitted to the hospital for elective laparoscopic cholecystectomy. Procedure performed by Dr. Martino on November 10. Surgical findings included gallbladder with thickened rind and adhesions due to prior cholecystitis. He had a cholangiogram without biliary anatomy or filling defect but the dye did not fill the duodenum even with glucagon administration. Patient had been hospitalized here 1 month ago for cholecystitis. He has had a uncomplicated course at home prior to surgery. He reports otherwise feeling well preoperatively. Postoperatively he had recurrent emesis yesterday and 1 early this morning. On each occasion he reports that it was more change of position, going from supine to sitting, that seem to trigger an emesis. He was not feeling nausea and he has minimal abdominal discomfort. He describes the event as regurgitation. He does have known gastroesophageal reflux and does report that he has had episodes in the past where he will get gastric reflux into his throat if he eats a meal and lays down. He also gets heartburn if he does not take his omeprazole. MRI of the abdomen to assess the biliary tree is pending. There is concern about his ability to undergo MRI of the abdomen due to his inability to extend his hips from chronic hip contracture. He tells me he has previously had MRI without difficulty but I see he has only had previous abdominal CT scans in reviewing his records. Exam Narrative: Exam Narrative: He is alert and appears in no distress. Respirations are clear to auscultation. Cardiovascular: S1, S2, regular rate and rhythm. Abdomen: Bowel sounds are present. Abdomen is soft with minimal tenderness. Abdominal incisions from laparoscopic surgery are without erythema or drainage. Extremities without edema. Const: Vital Signs, click to edit/add: Vital Signs - 24 hr 11/10/24 11:59 11/10/24 15:56 11/10/24 16:00 Temperature 98.3 F 97.4 F L Pulse Rate 74 84 74 Pulse Rate [Pulse Oximeter] Respiratory Rate 16 14 16 Blood Pressure 135/105 H 155/102 H 158/97 H Blood Pressure [Ri ght Arm] Pulse Oximetry 98 97 95 Oxygen Delivery Me thod Room Air Room Air 11/10/24 16:05 11/10/24 16:10 11/10/24 16:15 Temperature Pulse Rate 75 70 63 Pulse Rate [Pulse Oximeter] Respiratory Rate 14 12 13 Blood Pressure 156/106 H 157/102 H 159/101 H Blood Pressure [Ri ght Arm] Pulse Oximetry 95 94 95 Oxygen Delivery Me thod 11/10/24 16:20 11/10/24 16:25 11/10/24 16:30 Temperature 98.1 F 97.1 F L Pulse Rate 73 76 66 Pulse Rate [Pulse Oximeter] Respiratory Rate 12 14 16 Blood Pressure 151/101 H 154/96 H 139/86 Blood Pressure [Ri ght Arm] Pulse Oximetry 95 96 97 Oxygen Delivery Me thod Room Air 11/10/24 16:45 11/10/24 17:00 11/10/24 17:00 Temperature 97.0 F L 97.3 F L 97.3 F L Pulse Rate 67 65 Pulse Rate [Pulse Oximeter] 66 Respiratory Rate 16 16 Blood Pressure 136/90 H 129/87 Blood Pressure [Ri ght Arm] 129/87 Pulse Oximetry 96 97 Oxygen Delivery Me thod Room Air Room Air 11/10/24 17:15 11/10/24 17:30 11/10/24 18:00 Temperature 97.4 F L 97.4 F L 97.4 F L Pulse Rate 66 66 64 Pulse Rate [Pulse Oximeter] Respiratory Rate 16 16 16 Blood Pressure 135/85 126/70 127/71 Blood Pressure [Ri ght Arm] Pulse Oximetry 95 94 94 Oxygen Delivery Me thod Room Air Room Air Room Air 11/10/24 18:30 11/10/24 19:43 11/10/24 20:43 Temperature 97.8 F 97.8 F 97.6 F Pulse Rate 67 97 95 Pulse Rate [Pulse Oximeter] Respiratory Rate 16 20 20 Blood Pressure 128/78 162/105 H 150/108 H Blood Pressure [Ri ght Arm] Pulse Oximetry 95 96 95 Oxygen Delivery Me thod Room Air Room Air Room Air 11/10/24 21:43 11/10/24 22:43 11/10/24 22:53 Temperature 98.1 F 98.1 F 98.1 F Pulse Rate 94 103 H Pulse Rate [Pulse Oximeter] 103 H Respiratory Rate 18 18 18 Blood Pressure 128/75 147/98 H Blood Pressure [Ri ght Arm] 147/98 H Pulse Oximetry 94 96 96 Oxygen Delivery Me thod Room Air Room Air Room Air 11/10/24 23:00 11/11/24 01:54 11/11/24 07:00 Temperature 97.7 F Pulse Rate Pulse Rate [Pulse Oximeter] 104 H Respiratory Rate 16 16 18 Blood Pressure Blood Pressure [Ri ght Arm] 140/90 H Pulse Oximetry 96 95 92 Oxygen Delivery Me thod Room Air Room Air Room Air 11/11/24 07:50 11/11/24 07:50 11/11/24 11:00 Temperature 99.2 F 99.0 F Pulse Rate Pulse Rate [Pulse Oximeter] 93 93 91 Respiratory Rate 18 18 18 Blood Pressure Blood Pressure [Ri ght Arm] 114/80 149/91 H Pulse Oximetry 92 93 Oxygen Delivery Me thod Room Air Room Air Documenting provider has reviewed patient's vital signs: yes Labs Labs: Laboratory Results - last 24 hr 11/11/24 06:20 WBC 12.36 H RBC 4.15 L Hgb 12.7 L Hct 37.7 MCV 91 MCH 31 MCHC 34 RDW Coeff of [place] 13.4 Plt Count 159 Neut % (Auto) 87.2 H Lymph % (Auto) 4.7 L [place] % (Auto) 7.4 Eos % (Auto) 0.2 Baso % (Auto) 0.1 Neut # (Auto) 10.80 H Lymph # (Auto) 0.60 L [place] # (Auto) 0.90 Eos # (Auto) 0.00 Baso # (Auto) 0.00 Abs Immat Gran (auto) 0.00 Imm/Tot Granulo (auto) 0.4 Sodium 134 L Potassium 3.6 Chloride 102 Carbon Dioxide 25 Anion Gap 7 BUN 9 Creatinine 1.0 Estimated Creat Clear 89.05 Estimated GFR 85 Glucose 129 H Calcium 8.5 Total Bilirubin 1.9 H Direct Bilirubin 0.2 AST 34 ALT 23 Alkaline Phosphatase 86 Total Protein 6.6 Albumin 3.5 Lipase 16 L
--- NOTE | 2024-11-11 18:52 | PC.NURSE ---
End of Shift ([id number]): Patient pleasant and cooperative, A&O. VSS, afebrile. SpO2 maintained above 90% on RA. Patient reports feeling nausea with movement. Attempted PRN medication x2 this shift, did not resolve the nausea pet pt. Patient has had emesis x3 today.? He has not eaten today due to the nausea. 1-2 assist to side of bed with urinal for voiding. Encouraged patient throughout the shift to sit in the chair, pt got up to the chair for about 20 minutes before saying he needed to go to the bathroom then back to bed. Continued encouraging patient to try to sit up, refused. Patient appears comfortable in bed, call light within reach.
[2024-11-11 23:16] LABS: Appearance Urine Clear (Clear)
[2024-11-12] VITALS (8 sets, daily range): BP systolic 131–168; BP diastolic 85–111; PULSE 84–95; RESP 16–18; TEMP 36.6–37; O2SAT 92–96
[2024-11-12 06:32] LABS: Hematocrit 37.0 % (37.0-53.0); Hemoglobin* 12.8 gm/dL (13.5-17.5); Immature Granulocytes Pct Auto 0.4 %; Mean Corpuscular HGB Conc 35 gm/dL (32-36); Mean Corpuscular Hemoglobin 31 pg (26-34); Mean Corpuscular Volume 90 fL (80-100); RDW Coefficient of Variation % 13.2 % (11.5-15.5); Red Blood Count 4.12 m/uL (4.30-5.90); White Blood Count* 13.45 K/uL (4.50-11.00)
[2024-11-12 06:35] LABS: Immature Granulocytes Abs Auto 0.10 K/uL (0.00-0.30); Lymphocytes Absolute Auto 0.60 K/uL (0.90-2.90); Slide Review Reflex No
[2024-11-12 06:46] LABS: Albumin* 3.6 g/dL (3.3-5.0); Chloride* 101 mmol/L (96-114)
[2024-11-12 06:47] LABS: Potassium* 3.4 mmol/L (3.6-5.1); Sodium* 133 mmol/L (135-149)
[2024-11-12 06:49] LABS: Alanine Aminotransferase* 20 U/L (4-50); Alkaline Phosphatase* 82 U/L (40-150); Anion Gap 7 mEq/L (7-15); Aspartate Amino Transferase* 23 U/L (12-35); Bilirubin Direct* 0.3 mg/dL (0.0-0.5); Bilirubin Total* 1.9 mg/dL (0.1-1.5); Blood Urea Nitrogen* 12 mg/dL (7-30); Carbon Dioxide* 25 mmol/L (20-32); Creatinine* 0.8 mg/dL (0.5-1.5); Est. Creatinine Clearance* 89.05; Estimated Glomerular Filt Rate 100 ml/min; Total Protein* 6.9 g/dL (6.0-8.3)
[2024-11-12 06:50] LABS: Calcium* 8.7 mg/dL (8.4-10.6); Glucose* 127 mg/dL (60-115)
--- NOTE | 2024-11-12 07:29 | PC.NURSE ---
Shift note ([id number]): Patient pleasant and cooperative. Reported having pain but unable to rate. Pt stated it was, More of a discomfort that makes me throw up. Had small amounts of medium brown coffee grain consistency emesis. Gastroccult of emesis negative. Pt?confused at times during the night. Oriented to self, , place, president and situation; not oriented to date or recent holiday. At that time patient denied any headache or pain, grasps strong and equal, pupils equal and reactive, smile symmetrical.? BS 119. c/o being too hot; no other complaints. Pt afebrile.?BPs elevated; most recent BP 165/88.?Charge nurse updated of above. No drainage to lap sites. Dressing clean, dry and intact. ?
--- NOTE | 2024-11-12 09:41 | P.IMPN_ITS ---
Assessment and Plan Assessment and plan (1) S/P laparoscopic cholecystectomy: Problem comment: - 11/10/24 Dr. Martino Mildly elevated indirect bilirubin without evidence of surgical complication. Status: Acute (2) Elevated bilirubin: Problem comment: Total bili 1.9. Direct bili 0.2. Stable. Possibly [place]? Reviewing past medical records: 10/02/2013 he was admitted to [address] in [place] with a fever. On admission he had a total bili of 1.8 and a direct bili of 0.7. On 10/03/2013 he had a total bili of 4.8 and a direct bili of 3.7. On 10/05/2013 he had a total bili of 1.7 and a direct bili of 1.1. Abdominal CT on admission showed normal gallbladder and bile ducts. Also noted fluid-filled bowel suggestive of diarrheal illness. Negative blood and urine cultures. He was discharged from the hospital with a diagnosis of fever of unknown origin. Treated with Levaquin for 2 weeks at discharge. Status: Acute (3) Postoperative vomiting: Problem comment: Immediately postoperatively I suspect general anesthesia may have contributed to his vomiting. 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 No definite signs or symptoms of an operative complication. MRI pending. I recommend to the patient that he sit up for eating and drinking. He prefers to lie in bed because it is easier to reposition himself. Since his symptoms are somewhat orthostatic I would recommend he be sitting up for a few minutes prior to eating or drinking and remain sitting for at least a 1/2 hour after eating or drinking. Continue to elevate head of bed. Status: Acute (4) GERD (gastroesophageal reflux disease): Problem comment: On omeprazole. Status: Acute (5) Contracture, hip: Problem comment: Chronic bilateral hip contractures. Status: Chronic Plan Continue to assess for postoperative complications. Continue to evaluate and manage recurrent emesis. Monitor for upper GI bleeding. Coordinate with General surgery. Total Time Spent Total Time Spent: Total time spent is 40 minutes in coordination of care and discussing with patient and other providers management of laparoscopic cholecystectomy, postoperative care, recurrent and chronic reflux and vomiting. Subjective Date Seen: 11/12/24 Interval history: 64-year-old male admitted to the hospital for elective laparoscopic cholecystectomy. Procedure performed by Dr. Martino on November 10. Surgical findings included gallbladder with thickened rind and adhesions due to prior cholecystitis. He had a cholangiogram without biliary anatomy or filling defect but the dye did not fill the duodenum even with glucagon administration. Patient had been hospitalized here 1 month ago for cholecystitis. He has had a uncomplicated course at home prior to surgery. He reports otherwise feeling wel l preoperatively. Postoperatively he had recurrent emesis yesterday and 1 early this morning. On each occasion he reports that it was more change of position, going from supine to sitting, that seem to trigger an emesis. He was not feeling nausea and he has minimal abdominal discomfort. He describes the event as regurgitation. He does have known gastroesophageal reflux and does report that he has had episodes in the past where he will get gastric reflux into his throat if he eats a meal and lays down. He also gets heartburn if he does not take his omeprazole. MRI of the abdomen to assess the biliary tree is pending. There is concern about his ability to undergo MRI of the abdomen due to his inability to extend his hips from chronic hip contracture. He tells me he has previously had MRI without difficulty but I see he has only had previous abdominal CT scans in reviewing his records. 11/12/2024: Patient is continued to have emesis associated with position change. He also had emesis when he tried to lay supine. The emesis was dark in appearance but was gastroccult negative. Because he was having an emesis when he was supine the MRI was canceled yesterday and rescheduled for this morning. He has been NPO overnight. He reports his abdominal pain is minimal. He is passing gas but has not had a bowel movement. Exam Narrative: Exam Narrative: He is alert and appears in no distress. He gives his own history. Respirations are clear to auscultation. Cardiovascular: S1, S2, regular rate and rhythm. Abdomen: Bowel sounds present. Abdomen incisions are clean and dry without drainage or erythema. Abdomen is soft with minimal tenderness near incisions consistent with postoperative status. Extremities without edema. Good peripheral perfusion and pulses. Const: Vital Signs, click to edit/add: Vital Signs - 24 hr 11/11/24 11:00 11/11/24 15:00 11/11/24 15:00 Temperature 99.0 F Pulse Rate [Pulse Oximeter] 91 74 Respiratory Rate 18 18 18 Blood Pressure [Ri ght Arm] 149/91 H Pulse Oximetry 93 94 Oxygen Delivery Me thod Room Air Room Air 11/11/24 16:03 11/11/24 20:34 11/11/24 22:50 Temperature 99.3 F 99.1 F 98.1 F Pulse Rate [Pulse Oximeter] 74 116 H 90 Respiratory Rate 18 20 18 Blood Pressure [Ri ght Arm] 149/91 H 152/105 H 146/92 H Pulse Oximetry 94 95 93 Oxygen Delivery Me thod Room Air Room Air Room Air 11/11/24 23:00 11/12/24 01:50 11/12/24 06:00 Temperature 98.2 F 98.0 F Pulse Rate [Pulse Oximeter] 90 84 Respiratory Rate 18 18 Blood Pressure [Ri ght Arm] 157/92 H 165/88 H Pulse Oximetry 93 94 93 Oxygen Delivery Me thod Room Air Room Air Room Air 11/12/24 07:00 11/12/24 07:00 11/12/24 07:00 Temperature 98.0 F Pulse Rate [Pulse Oximeter] 90 90 Respiratory Rate 18 18 18 Blood Pressure [Ri ght Arm] 168/111 H Pulse Oximetry 96 96 Oxygen Delivery Me thod Room Air Room Air Documenting provider has reviewed patient's vital signs: yes Labs Labs: Laboratory Results - last 24 hr 11/11/24 11/12/24 23:10 05:50 WBC 13.45 H RBC 4.12 L Hgb 12.8 L Hct 37.0 MCV 90 MCH 31 MCHC 35 RDW Coeff of Sasha 13.2 Plt Count 161 Neut % (Auto) 87.8 H Lymph % (Auto) 4.8 L [place] % (Auto) 6.8 Eos % (Auto) 0.1 Baso % (Auto) 0.1 Neut # (Auto) 11.80 H Lymph # (Auto) 0.60 L [place] # (Auto) 0.90 Eos # (Auto) 0.00 Baso # (Auto) 0.00 Abs Immat Gran (auto) 0.10 Imm/Tot Granulo (auto) 0.4 Sodium 133 L Potassium 3.4 L Chloride 101 Carbon Dioxide 25 Anion Gap 7 BUN 12 Creatinine 0.8 Estimated Creat Clear 89.05 Estimated GFR 100 Glucose 127 H Calcium 8.7 Magnesium 1.5 Total Bilirubin 1.9 H Direct Bilirubin 0.3 AST 23 ALT 20 Alkaline Phosphatase 82 Total Protein 6.9 Albumin 3.6 Lipase 14 L Urine Color Yellow Urine Appearance Clear Urine pH 8.0 Ur Specific [place] 1.015 Urine Protein 1+ A Urine Glucose (UA) Negative Urine Ketones 1+ A Urine Blood Trace-intact A Urine Nitrite Negative Urine Bilirubin Negative Urine Urobilinogen 2.0 A Ur Leukocyte Esterase Negative Urine RBC 0-2 Urine WBC 0-2 Ur Squamous Epith Cells Few Urine Bacteria Few A
--- NOTE | 2024-11-12 09:50 | PM.GSPN ---
Subjective Subjective Date Seen: 11/12/24 Interval history: Steven continues to have vomiting. This appeared coffee-ground, however was checked for blood and was negative. Seems to be mostly positional and yesterday was related to hiccups. This morning he had the dry heaves. Continuing to deny any significant abdominal pain. unable to obtain MRI. Exam Narrative: Exam Narrative: General: No acute distress Respiratory: Breathing nonlabored on room air Abdomen: Soft, appropriately tender for the postoperative state. Incisions clean and dry. Const: Vital Signs, click to edit/add: Vital Signs - 24 hr 11/11/24 11:00 11/11/24 15:00 11/11/24 15:00 Temperature 99.0 F Pulse Rate [Pulse Oximeter] 91 74 Respiratory Rate 18 18 18 Blood Pressure [Ri ght Arm] 149/91 H Pulse Oximetry 93 94 Oxygen Delivery Me thod Room Air Room Air 11/11/24 16:03 11/11/24 20:34 11/11/24 22:50 Temperature 99.3 F 99.1 F 98.1 F Pulse Rate [Pulse Oximeter] 74 116 H 90 Respiratory Rate 18 20 18 Blood Pressure [Ri ght Arm] 149/91 H 152/105 H 146/92 H Pulse Oximetry 94 95 93 Oxygen Delivery Me thod Room Air Room Air Room Air 11/11/24 23:00 11/12/24 01:50 11/12/24 06:00 Temperature 98.2 F 98.0 F Pulse Rate [Pulse Oximeter] 90 84 Respiratory Rate 18 18 Blood Pressure [Ri ght Arm] 157/92 H 165/88 H Pulse Oximetry 93 94 93 Oxygen Delivery Me thod Room Air Room Air Room Air 11/12/24 07:00 11/12/24 07:00 11/12/24 07:00 Temperature 98.0 F Pulse Rate [Pulse Oximeter] 90 90 Respiratory Rate 18 18 18 Blood Pressure [Ri ght Arm] 168/111 H Pulse Oximetry 96 96 Oxygen Delivery Me thod Room Air Room Air Labs/Imaging Labs Labs: White blood cell count 13 Hemoglobin 12.8 from 12.7 Sodium 133 Potassium 3.4 Total bilirubin 1.9 again direct bilirubin 0.3, remainder of LFTs and lipase normal. Progress Note:A&P Assessment and plan (1) GERD (gastroesophageal reflux disease): Status: Acute (2) Postoperative vomiting: Status: Acute (3) Elevated bilirubin: Status: Acute (4) S/P laparoscopic cholecystectomy: Status: Acute Plan The patient is a 64-year-old male who is now postop day 2 status post laparoscopic cholecystectomy. Intraoperative cholangiogram performed to delineate biliary anatomy showed no filling of the duodenum. I did discuss this with the radiologist as the radiologist read shows that there was contrast within the duodenum, however overall this remains unclear. He does not have an obstructive pattern on his LFTs given that he has an elevated indirect bilirubin. Review of his record shows history of elevated indirect bilirubin on hospitalizations in the past. - Unclear cause for persistent vomiting. - Continue to follow labs and advance diet as tolerated. - Recommend head of bed elevated as laying down tends to lead to dry heaves. - Continue PPI - unable to obtain MRCP given patient's hip contractures. Low suspicion for biliary obstruction based on LFT pattern patient history, however, if he has ongoing symptoms, elevated white count and elevated LFTs could consider CT scan to rule out other postoperative complications such as bile leak.
--- NOTE | 2024-11-12 10:28 | PC.SOCIAL ---
Discharge planning: SW met with patient to discuss transportation. SW discussed the cost and patient signed the NEMT form. SW also provided patient with the patient advocate card so he could discuss his unpleasant interaction with one of the EMS that transported him to the hospital. Patient had no other questions or concerns at this time.
--- NOTE | 2024-11-12 14:56 | PC.NURSE ---
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 Patient refuses to use the wheelchair. Staff have to help him put his shoes on several times. His legs/feet are ridged and stiff so its hard to put his shoes on. Patient has made remarks to staff Don't you know how to put shoes on? Patient uses the urinal with staff total medical assistant float, he stands up while holding onto the wheelchair. Nursing has to maneuver the urinal in between his legs. Again his legs are very stiff and is hard to get the urinal into place. Patient will again will make a comment if nursing is having difficulties placing the urinal in the correct spot. Nursing assistants have told we are doing the best with his circumstances..
--- NOTE | 2024-11-12 19:04 | PC.NURSE ---
End of shift: VSJami, . Patient had 1 small emesis this AM and intermittently dry heaving with no emesis this afternoon. Patient had few bites of lunch and refused dinner. RN encouraged patient to sit up right as much as possible and to have something to eat. Patient denied pain in abdomen.
[2024-11-12] MEDS: OMEPRAZOLE 20 MG CAPSULE DR PO (21:26)
[2024-11-12] MEDS: GABAPENTIN 100 MG CAPSULE 200 MG PO (21:26)
[2024-11-13 02:47] VITALS: BP 141/95; PULSE 100; RESP 16; TEMP 37; O2SAT 95
--- NOTE | 2024-11-13 04:54 | PC.NURSE ---
Shift note: Patient is alert and oriented. According to PM staff, patient refused diner. He reported abdominal discomfort with nausea and vomiting. Blood sugar checked at 2100 was 104. Patient ambulates with wheelchair. However, he refused to be ambulated to the BR rather, he prefers using urinal infront of the bed while standing. Staff nurse needs to assist patient with the urinal. Bp has been elevated. Patient denied previous hx of HTN.
[2024-11-13 08:30] VITALS: BP 131/87; PULSE 86; RESP 18; TEMP 36.8; O2SAT 95
[2024-11-13] MEDS: GABAPENTIN 600 MG TABLET PO (08:59)
[2024-11-13] MEDS: GABAPENTIN 100 MG CAPSULE 200 MG PO (08:59)
[2024-11-13] MEDS: OMEPRAZOLE 20 MG CAPSULE DR PO (08:59)
[2024-11-13 10:00] VITALS: PULSE 86; RESP 18
--- NOTE | 2024-11-13 10:21 | PM.DS1 ---
DS: Providers Provider Date Seen: 11/13/24 Date of admission: 11/11/24 08:48 Primary care physician: Freddy Hightower MD Admitting Clinician: Heaven Martino MD Attending Physician on discharge: Heaven Martino MD Date of Discharge: 11/13/24 DS: Diagnosis Discharge Diagnosis (1) S/P laparoscopic cholecystectomy: Status: Acute Problem details: - 11/10/24 Dr. Martino Mildly elevated indirect bilirubin without evidence of surgical complication. (2) Postoperative vomiting: Status: Acute Problem details: Immediately postoperatively I suspect general anesthesia may have contributed to his vomiting. 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 No definite signs or symptoms of an operative complication. I recommend to the patient that he sit up for eating and drinking. He prefers to lie in bed because it is easier to reposition himself. Since his symptoms are somewhat orthostatic I would recommend he be sitting up for a few minutes prior to eating or drinking and remain sitting for at least a 1/2 hour after eating or drinking. Continue to elevate head of bed. (3) GERD (gastroesophageal reflux disease): Status: Acute Problem details: On omeprazole. (4) Elevated bilirubin: Status: Acute Problem details: Total bili 1.9. Direct bili 0.2. Stable. Reviewing past medical records: 10/02/2013 he was admitted to [address] in [place] with a fever. On admission he had a total bili of 1.8 and a direct bili of 0.7. On 10/03/2013 he had a total bili of 4.8 and a direct bili of 3.7. On 10/05/2013 he had a total bili of 1.7 and a direct bili of 1.1. Abdominal CT on admission showed normal gallbladder and bile ducts. Also noted fluid-filled bowel suggestive of diarrheal illness. Negative blood and urine cultures. He was discharged from the hospital with a diagnosis of fever of unknown origin. Treated with Levaquin for 2 weeks at discharge. 05/12/2015 he had a total bili of 2.2 and direct bili of 0.4 and normal transaminases 04/13/2017 he had a total bili of 0.9 and a direct bili of 0.3 with normal transaminases. Normal gallbladder ultrasound at that time. 10/26/2020 he had 8 total bili of 8.9 and direct bili of 4.4. Transaminases were in the 300s with AST and ALT being approximately the same and alkaline phosphatase also elevated and lipase also elevated. Normal ultrasound at that time. (5) Elevated blood pressure reading without diagnosis of hypertension: Status: Acute Problem details: Patient has had persistent elevation of blood pressure during this hospital stay. He denies history of hypertension. Recommend outpatient follow-up. DS: Summary Hospital Course Hospital Course: 64-year-old male admitted to the hospital for elective laparoscopic cholecystectomy. Procedure performed by Dr. Martino on November 10. Surgical findings included gallbladder with thickened rind and adhesions due to prior cholecystitis. He had a cholangiogram without biliary anatomy or filling defect but the dye did not fill the duodenum even with glucagon administration. Patient had been hospitalized here 1 month ago for cholecystitis. He has had a uncomplicated course at home prior to surgery. He reports otherwise feeling well preoperatively. Postoperatively he had recurrent emesis yesterday and 1 early this morning. On each occasion he reports that it was more change of position, going from supine to sitting, that seem to trigger an emesis. He was not feeling nausea and he has minimal abdominal discomfort. He describes the event as regurgitation. He does have known gastroesophageal reflux and does report that he has had episodes in the past where he will get gastric reflux into his throat if he eats a meal and lays down. He also gets heartburn if he does not take his omeprazole. MRI of the abdomen to assess the biliary tree is pending. There is concern about his ability to undergo MRI of the abdomen due to his inability to extend his hips from chronic hip contracture. He tells me he has previously had MRI without difficulty but I see he has only had previous abdominal CT scans in reviewing his records. 11/12/2024: Patient is continued to have emesis associated with position change. He also had emesis when he tried to lay supine. The emesis was dark in appearance but was gastroccult negative. Because he was having an emesis when he was supine the MRI was canceled yesterday and rescheduled for this morning. He has been NPO overnight. He reports his abdominal pain is minimal. He is passing gas but has not had a bowel movement. Unable to tolerate MRI due to positioning with his hip contracture. 11/13/2024: Patient reports feeling better today. He has some mild right upper quadrant discomfort when he has hiccups. He has been able to eat breakfast without recurrent nausea or vomiting. Status at Discharge Functional status at discharge: wheelchair bound Overall status at discharge: patient is progressing back to baseline Time Spent with Patient Time attestation: Total time spent providing and/or coordinating discharge services: 40 minutes Exam Narrative: Exam Narrative: He is alert and appears in no distress. Breathing is unlabored. Abdomen: Bowel sounds are present. Abdomen is soft with minimal right upper quadrant tenderness. Incisions are clean and dry. Const: Vital Signs, click to edit/add: Vital Signs - 24 hr 11/12/24 11:00 11/12/24 15:00 11/12/24 15:00 Temperature 98.6 F Pulse Rate [Pulse Oximeter] 91 89 Respiratory Rate 16 16 16 Blood Pressure [Ri ght Arm] 155/102 H Pulse Oximetry 95 96 Oxygen Delivery Me thod Room Air Room Air 11/12/24 15:00 11/12/24 19:00 11/12/24 22:50 Temperature 98.6 F 98.5 F Pulse Rate [Pulse Oximeter] 89 95 Respiratory Rate 16 16 16 Blood Pressure [Ri ght Arm] 146/86 H 131/104 H Pulse Oximetry 96 94 Oxygen Delivery Me thod Room Air Room Air 11/12/24 22:50 11/12/24 23:28 11/13/24 02:47 Temperature 98 F 98.6 F Pulse Rate [Pulse Oximeter] 88 100 Respiratory Rate 16 16 16 Blood Pressure [Ri ght Arm] 140/85 H 141/95 H Pulse Oximetry 94 92 95 Oxygen Delivery Me thod Room Air Room Air Room Air Documenting provider has reviewed patient's vital signs: yes DS: Data Data Completed and Pending Labs on day of discharge: Preliminary micro results at discharge 11/11/24 23:10 Urine Culture - Preliminary Urine,Clean Catch NO GROWTH AFTER 24 HOURS Discharge Plan Discharge Disposition: Home, Self-Care Date of Admission: 11/11/24 08:48 Consulting Providers: Nidia Benedict Primary Care Provider: Freddy Hightower Condition: Improved Anticipated Discharge Date/Time: 11/13/24 09:54 Discharge Medications: New hydrocodone-acetaminophen 5-325 mg tablet 1 tab PO Q6H PRN (Reason: Pain) Qty: 15 0RF Rx Instructions: 1 tab orally as needed - Use caution in taking this medication while taking Gabapentin Continued omeprazole 20 mg capsule,delayed release(DR/EC) 20 mg PO QDAY Qty: 90 3RF gabapentin 800 mg tablet See Rx Instructions PO .COMPLEX Qty: 600 3RF Patient Comments: 1 tab thisAM Rx Instructions: 800 mg 6-7 times a day orally; Discharge Orders: Discharge Order (Routine); Ordered 11/13/24 Ordered By: Giuseppe Moreno Patient Education: Hydrocodone/Acetaminophen (By mouth), General Anesthesia (DC), Post-Operative Instructions: Laparoscopic Cholecystectomy Additional Instructions: Wound care: Your sutures are under the skin and will dissolve over time. Leave steri strips (white bandages) over incisions until they fall off (or remove after 7 days). OK to shower tomorrow but avoid bathing, soaking or swimming for 2 weeks. Pat the incisions dry. No need to wash or scrub the area. Apply ice to the area as needed for swelling. It is also OK to use a heating pad if this provides more comfort to you. Pain control: You were prescribed a pain medication. This medication contains acetaminophen (Tylenol). If you are taking your prescribed pain pills 4 times daily, do not take additional acetaminophen. As your pain improves, you can try taking acetaminophen instead of the prescribed pain pill. It is ok to take Ibuprofen or Naproxen (per directions on packaging). This medication helps with inflammation and swelling. Take an [id number] stool softener while you are taking prescribed pain medications to help alleviate constipation. I recommend Senna and/or Colace. Take as directed on package. If you have not had a bowel movement in 3 days, try taking Miralax as directed on the package. All of these are available over the counter. Follow-up Follow up with Dr. Martino in 2-3 weeks Please call if you are experiencing severe pain, nausea, vomiting, difficulty urinating, fever or have not had bowel movement in 4 days after surgery. Activity Level: Activity as Tolerated and No strenuous activity Activity Detail: No lifting more than 20 pounds for 2 weeks Discharge Diet: Regular Follow Up Appointments: Heaven Martino MD [Staff Physician, General Surgery] - 12/02/24 10:00 am Referral Note: [facility] for hospital follow-up. Freddy Hightower MD [Primary Care Provider, Family Practice] Forms: [employer] Info Instructions
--- NOTE | 2024-11-13 12:52 | PC.NURSE ---
Discharge: Patient pleasant and cooperative, A&O. VSS, afebrile. SpO2 maintained above 90% on RA. Denies nausea this shift. Tolerating regular diet. IV removed with tip intact. Discharge instructions provided, all questions answered.
== END 2024-11-13 11:04 | disposition home or self-care (01) | DRG 419 ==
LOC: OR 09:05 → MEDSURG 11-12 08:14
PROVIDERS: Family Medicine; Admitting Provider Surgery; PCP Family Medicine; Visit Provider Surgery
PROC: 0FT44ZZ Resection of Gallbladder, Percutaneous Endoscopic Approach (ICD-10-PCS; CPT 47562; principal; 2024-11-10 13:30)
DX: K80.12 Calculus of gallbladder with acute and chronic cholecystitis without obstruction (principal); K82.8 Other specified diseases of gallbladder; K21.9 Gastro-esophageal reflux disease without esophagitis; R11.10 Vomiting, unspecified; R03.0 Elevated blood-pressure reading, without diagnosis of hypertension; E80.6 Other disorders of bilirubin metabolism; G58.7 Mononeuritis multiplex; Z99.3 Dependence on wheelchair; M24.552 Contracture, left hip; M24.551 Contracture, right hip
CPT/HCPCS: 00790; 36415; 51798; 74300; 76000; 80048; 80076; 81001; 82962; 83690; 83735; 83986; 85025; 87086; 88304; A9270; J0665; J0690; J0780; J1171; J1610; J2371; J2405; J2704; J3010; J3490; J7120; Q9967

== ENCOUNTER 2024-11-13 11:02 | Outpatient (CLI) | payer MEDICARE, SELFPAY | END 2024-11-13 11:03 | disposition home or self-care (01) | PROVIDERS: PCP Family Medicine; Visit Provider Emergency Medicine | DX: R53.1 Weakness (principal); Z99.3 Dependence on wheelchair | CPT/HCPCS: A0425; A0428 ==